=== PATIENT | female | born 1935 | race Caucasian/White ===

== ENCOUNTER → 2017-04-26 | Outpatient (CLI) | payer OTHER ==
[2015-11-09 11:46] VITALS: BP 136/55
--- NOTE | 2017-04-30 16:37 | MG ---
HISTORY: SCREENING Comparison: 09/16/2015 FINDINGS: Bilateral CC and MLO projections of the right and left breast were obtained. Heterogeneously dense f ibroglandular tissue is seen to be present. No significant architectural distortion, mass or cluster ed microcalcifications can be observed to suggest malignancy. No skin thickening or nipple retractio n is appreciated. No pathological lymphadenopathy can be identified. Benign calcifications are pres ent bilaterally IMPRESSION: NO RADIOGRAPHIC EVIDENCE OF MALIGNANCY. ACR CATEGORY 2 - benign findings FOLLOW-UP EXAM 1 YEAR. Diagnostic CAD was utilized and reviewed. * 0 (ZERO) - ASSESSMENT INCOMPLETE; ADDITIONAL IMAGING IS NEEDED. * / (ONE) - NEGATIVE. * 2/II (TWO) - BENIGN FINDINGS. * 3/III (THREE) - PROBABLY BENIGN FINDING; SHORT INTERVAL FOLLOW-UP SUGGESTED. * 4/IV (FOUR) - SUSPICIOUS ABNORMALITY; BIOPSY SHOULD BE CONSIDERED. * 5/V - HIGHLY SUSPICIOUS OF MALIGNANCY; BIOPSY SHOULD BE PERFORMED. A NEGATIVE X-RAY REPORT SHOULD NOT DELAY BIOPSY IF A DOMINANT OR CLINICALLY SUSPICIOUS MASS IS PRESENT; 4 TO 8 PERCENT OF CANCERS ARE NOT IDENTIFIED BY X-RAY. A NEGA TIVE REPORT MAY REINFORCE THE CLINICAL IMPRESSION. ADENOSIS AND DENSE BREASTS MAY OBSCURE AN UNDERLY ING NEOPLASM. Reported By:
== END ==
LOC: RAD 09:03
PROVIDERS: ATTEND Internal Medicine
DX: Z12.31 Encounter for screening mammogram for malignant neoplasm of breast (principal)
CPT/HCPCS: 77067

== ENCOUNTER → 2017-10-04 | Outpatient (CLI) | payer OTHER ==
[2015-11-09 11:46] VITALS: BP 136/55
--- NOTE | 2017-10-05 09:28 | CT ---
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 The roll hauler view of the knee shows postoperative change of right total knee arthroplasty. The component s appear intact on the roll hauler images. Prominent artifact is seen at the level of the knee joint. There is no focal soft tissue swelling or mass identified. There is a small to moderate size suprapatellar knee joint effusion seen. No discrete Arias's cyst is evident. Impression: 1. Postoperative changes of right total knee arthroplasty with the components appearing intact. 2. No focal soft tissue mass or swelling is evident. 3. Small to moderate size right knee joint effusion. Reported By:
--- NOTE | 2017-10-05 13:18 | CT ---
History: Hip pain Study: CT right hip Findings: Initial AP and lateral scanograms demonstrate pedicle screws with posterior connecting rods bilaterally at the L4-5 level. Thin-section helical CT imaging through the right hip is then perform ed. A back cage is in place within the L4-5 interspace. There is rather severe osteopenia of the bony structures. There are advanced degenerative changes of the right hip with [id number] and subchondr al sclerosis and cyst formation on both sides of the joint. No fracture is identified. The uterus is absent. Impression: Advanced osteoarthrosis of the right hip. Orthopedic hardware and anterior interbody fusion at the L4-5 level. Reported By:
== END | disposition home or self-care (01) | DRG 556 ==
LOC: RAD 11:19
PROVIDERS: ATTEND Nurse Practitioner Family
DX: M25.551 Pain in right hip (principal); M25.651 Stiffness of right hip, not elsewhere classified; M16.11 Unilateral primary osteoarthritis, right hip; M47.816 Spondylosis without myelopathy or radiculopathy, lumbar region; M47.896 Other spondylosis, lumbar region; M25.561 Pain in right knee
CPT/HCPCS: 73700

== ENCOUNTER → 2017-11-20 | Outpatient (CLI) | payer OTHER ==
[2015-11-09 11:46] VITALS: BP 136/55
[2017-11-20 10:10] LABS: BILIRUBIN,URINE NEGATIVE (NEGATIVE); BLOOD/HEMOGLOBIN,URINE NEGATIVE (NEGATIVE); GLUCOSE, URINE NEGATIVE (NEGATIVE); KETONES,URINE NEGATIVE (NEGATIVE); LEUKOCYTE ESTERASE ,URINE 2+ (NEGATIVE); NITRITES,URINE NEGATIVE (NEGATIVE); PROTEIN,URINE 1+ (NEGATIVE); UROBILINOGEN,URINE NORMAL (NORMAL)
[2017-11-20 10:11] LABS: BASOPHILS % (AUTO) 0.8 % (0.2-1.0); EOSINOPHILS # (AUTO) 0.1 x10^3/uL (0.0-0.2); EOSINOPHILS % (AUTO) 1.5 % (0.9-2.9); HEMATOCRIT 37.9 % (36.0-47.0); LYMPHOCYTES # (AUTO) 0.9 X10^3/uL (1.3-2.9); LYMPHOCYTES % (AUTO) 23.6 % (21.0-51.0); MEAN CORPUSCULAR HEMOGLOBIN 31.5 pg (27.0-34.0); MEAN CORPUSCULAR HGB CONC 34.4 g/dL (33.0-35.0); MEAN CORPUSCULAR VOLUME 91.7 fL (80.0-100.0); MEAN PLATELET VOLUME 8.4 fL (7.4-11.0); MONOCYTES # (AUTO) 0.4 x10^3/uL (0.3-0.8); MONOCYTES % (AUTO) 10.4 % (0.0-13.0); NEUTROPHILS # (AUTO) 2.5 x10^3/uL (2.2-4.8); NEUTROPHILS % (AUTO) 63.7 % (42.0-75.0); PLATELET COUNT 194 X10^3/uL (150.0-450.0); RED BLOOD COUNT 4.14 X10^6/uL (3.5-5.4); RED CELL DISTRIBUTION WIDTH 13.2 % (11.6-16.5)
[2017-11-20 10:16] LABS: BLOOD UREA NITROGEN 23 mg/dL (7-18); CALCIUM 8.7 mg/dL (8.5-10.1); CARBON DIOXIDE 29.9 mmol/L (21-32); CHLORIDE 98 mmol/L (98-107); CREATININE 0.92 mg/dL (0.55-1.02); SODIUM 136 mmol/L (136-145); eGFR BLACK RACES > 60 (>60); eGFR NON BLACK RACES > 60 (>60)
--- NOTE | 2017-11-20 10:16 | RAD ---
HISTORY: Preop. Study: PA lateral chest. Comparison: None. Findings: The trachea is midline. The cardiac silhouette is unremarkable. Chronic emphysematous changes. Multi lead left chest cardiac pacemaker. No obvious focal consolidation, pleural effusion, or pneumothorax . The bony thorax is unremarkable. IMPRESSION: No acute cardiopulmonary disease. Reported By:
[2017-11-20 10:51] LABS: APPEARANCE,URINE CLEAR (CLEAR); COLOR,URINE YELLOW (YELLOW)
[2017-11-20 10:52] LABS: AMORPHOUS SEDIMENT,UR 1+ /HPF (NEGATIVE); BACTERIA,URINE NEGATIVE /HPF (NEGATIVE); MUCUS,URINE FEW /HPF (NEGATIVE); RBC,URINE 0-2 /HPF (NONE SEEN); SQUAMOUS EPITHELIAL CELL,UR RARE /HPF (NEGATIVE)
[2017-11-20 11:36] LABS: IRON 92 ug/dL (50-175); TOTAL IRON BINDING CAPACITY 321 ug/dL (250-450); TRANSFERRIN 249 mg/dL (202-364)
== END ==
LOC: LAB 09:23
PROVIDERS: ATTEND Orthopaedic Surgery
DX: Z01.818 Encounter for other preprocedural examination (principal); Z01.810 Encounter for preprocedural cardiovascular examination; Z01.811 Encounter for preprocedural respiratory examination; Z11.8 Encounter for screening for other infectious and parasitic diseases; Z79.899 Other long term (current) drug therapy; B95.62 Methicillin resistant Staphylococcus aureus infection as the cause of diseases classified elsewhere; B95.7 Other staphylococcus as the cause of diseases classified elsewhere; R79.1 Abnormal coagulation profile; R79.89 Other specified abnormal findings of blood chemistry; M16.11 Unilateral primary osteoarthritis, right hip
CPT/HCPCS: 36415; 71046; 80048; 81001; 82607; 82728; 83540; 83550; 84466; 85025; 85610; 87640; 87641; 93005; 93010

== ENCOUNTER → 2017-11-26 | Outpatient (CLI) | payer OTHER ==
[2015-11-09 11:46] VITALS: BP 136/55
[2017-11-26 12:54] LABS: APPEARANCE,URINE CLOUDY (CLEAR); BILIRUBIN,URINE NEGATIVE (NEGATIVE); BLOOD/HEMOGLOBIN,URINE 1+ (NEGATIVE); COLOR,URINE YELLOW (YELLOW); GLUCOSE, URINE NEGATIVE (NEGATIVE); KETONES,URINE NEGATIVE (NEGATIVE); NITRITES,URINE NEGATIVE (NEGATIVE); PROTEIN,URINE NEGATIVE (NEGATIVE); UROBILINOGEN,URINE NORMAL (NORMAL)
[2017-11-26 12:55] LABS: LEUKOCYTE ESTERASE ,URINE 1+ (NEGATIVE)
[2017-11-26 12:56] LABS: BACTERIA,URINE TRACE /HPF (NEGATIVE); MUCUS,URINE FEW /HPF (NEGATIVE); RBC,URINE 0-2 /HPF (NONE SEEN); SQUAMOUS EPITHELIAL CELL,UR FEW /HPF (NEGATIVE)
== END ==
LOC: LAB 11:57
PROVIDERS: ATTEND Orthopaedic Surgery
DX: Z01.818 Encounter for other preprocedural examination (principal); M16.11 Unilateral primary osteoarthritis, right hip; Z79.899 Other long term (current) drug therapy
CPT/HCPCS: 81001; 87086

== ENCOUNTER → 2017-12-04 | Outpatient (CLI) | payer OTHER ==
[2015-11-09 11:46] VITALS: BP 136/55
== END ==
LOC: LAB 09:30
PROVIDERS: ATTEND Orthopaedic Surgery
DX: Z11.8 Encounter for screening for other infectious and parasitic diseases (principal); M16.11 Unilateral primary osteoarthritis, right hip
CPT/HCPCS: 87640; 87641

== ENCOUNTER 2018-09-09 19:35 | Observation (INO) ==
[2018-09-09 19:57] VITALS: BMI 19.7
--- NOTE | 2018-09-09 20:05 | RAD ---
History: Chest pain Technique: AP chest Comparison: 11/20/2017 Findings: There is a dual lead pacemaker device present. There is a diffuse prominence of the interstitium, without focal airspace opacities. There is mild enlargement of the cardiac silhouette. Impression: 1. Chronic appearing interstitial changes without focal airspace opacities. 2. Mild enlargement of the cardiac silhouette. Reported By:
[2018-09-09 20:07] LABS: BASOPHILS % (AUTO) 0.7 % (0.2-1.0); EOSINOPHILS # (AUTO) 0.3 x10^3/uL (0.0-0.2); HEMATOCRIT 39.8 % (36.0-47.0); HEMOGLOBIN 13.5 g/dL (12.0-16.0); LYMPHOCYTES # (AUTO) 1.5 X10^3/uL (1.3-2.9); LYMPHOCYTES % (AUTO) 32.8 % (21.0-51.0); MEAN CORPUSCULAR HEMOGLOBIN 31.5 pg (27.0-34.0); MEAN CORPUSCULAR HGB CONC 33.9 g/dL (33.0-35.0); MEAN CORPUSCULAR VOLUME 92.8 fL (80.0-100.0); MONOCYTES # (AUTO) 0.5 x10^3/uL (0.3-0.8); MONOCYTES % (AUTO) 11.5 % (0.0-13.0); NEUTROPHILS # (AUTO) 2.2 x10^3/uL (2.2-4.8); PLATELET COUNT 174 X10^3/uL (150.0-450.0); RED BLOOD COUNT 4.29 X10^6/uL (3.5-5.4); RED CELL DISTRIBUTION WIDTH 13.4 % (11.6-16.5); WHITE BLOOD COUNT 4.5 X10^3/uL (3.6-10.0)
[2018-09-09 20:19] LABS: BLOOD UREA NITROGEN 23 mg/dL (7-18); CALCIUM 9.4 mg/dL (8.5-10.1); CARBON DIOXIDE 30.7 mmol/L (21-32); CHLORIDE 101 mmol/L (98-107); CREATININE 1.15 mg/dL (0.55-1.02); SODIUM 138 mmol/L (136-145); TROPONIN I < 0.02 ng/mL (0-1.5); eGFR NON BLACK RACES 48 (>60)
--- NOTE | 2018-09-09 20:34 | DR.CP ---
HPI Time Seen Time Seen by Provider: 09/09/18 20:34 PCP Primary Care Physician: NARCISA HPI Comment HPI Comment: PATIENT SAID SHE CAN FEEL HER HEART POUNDING. ASSEMBLY LEADER INCREASE HER MEDICATION WHICH HELP A LITTLE. SUBSTERNAL CHEST TIGHTNESS ALSO NOTED AND BP ELEVATED TODAY. NO FEVER OR URI SYMPTOMS. Complaint Chief Complaint Doctor Comments: CHEST PAIN AND IRREGULAR HEART RATE TIMES 4 DAYS. Chief Complaint:: "CHEST TIGHTNESS FOR THE LAST FEW DAY, AND MY HEART BEAT FEE LS IRREGULAR AND LIKE IT IS POUNDING. MY BLOOD PRESSURE WAS 150/80 AT HOME AND THAT IS HIGH FOR ME. I JUST SEEN MY ASSEMBLY LEADER 2 WEEKS AGO, THEY ADJUSTED MY MEDICATION. I HAVE AN APPT IN THE NEXT COUPLE DAYS WITH THE ASSEMBLY LEADER, I THINK I AM FINE BUT THE GIRLS WANTED ME TO COME ON AND GET CHECKED OUT. " Reviewed Nurses Notes Review: Yes Source History Provided: Patient and Family Member Mode of Arrival Mode of Arrival: Wheelchair Timing Onset of Chief Complaint: 09/06/18 Came on: Suddenly Pain: Present Now Duration Duration: Intermittent Duration: Days Location Location of Chest Pain: Chest (SUBSTERNAL PAIN.) Chest Pain Radiation Location: None Context Onset: At rest and With light exertion Cardiac Risk Factors: HTN PE Risk Factors: None History of: None Prehospital Care: None Quality Quality: Pleuritic (TIGHTNESS.) Severity Severity: Moderate Modifying Factors Worsens: Nothing Impoves: Nothing Associated Signs and Symptoms Associated Signs and Symptoms: None PMH PMH Past Medical History: Yes Past Medical History: Hypertension Past Medical History Comment: PACEMAKER IRREGULAR HEART BEAT Past Surgical History: Yes Surgical History: Joint Replacement, Ortho Surgery and Other Past Surgical History Comment: ABLASION FEMALE SURGERY HIP REPLACEMENT BACK SURGERY KNEE REPLACEMENT Family History History of Family Medical Conditions: Yes Family Medical History: Cancer and Hypertension Social History Does patient currently use any type of tobacco product: No Have you used tobacco products in the last 12 months: No Type of Tobacco Use: None Does any household member use tobacco: No Alcohol Use: None Do you use any recreational Drugs:: No Lives With: Spouse Lives Where: Home infectious screening In the last 2 months have you had wt loss of >10#?: NO Have you had fever, night sweats or hemotysis?: No Have you traveled outside the country in the last 6 months?: No Isolation: Standard ROS Review of Systems Constitutional: Weakness and Fatigue Eyes: No Symptoms Reported ENTM: No Symptoms Reported Respiratoy: Short of Breath (ON EXERTION) Cardiovascular: Chest Pain Gastrointestinal/Abdominal: No Symptoms Reported Genitourinary: No Symptoms Reported Neurological: No Symptoms Reported Musculoskeletal: No Symptoms Reported Integumentary: No Symptoms Reported Hematologic/Lymphatic: No Symptoms Reported Endocrine: No Symptoms Reported Psychiatric: No Symptoms Reported All Other Systems: Reviewed and Negative PE Vitals Vitals: Temperature 98.0 F Pulse Rate [Apical] 64 Pulse Rate 80 Respiratory Rate 18 Blood Pressure [Right Arm] 130/57 Blood Pressure 163/72 O2 Sat by Pulse Oximetry 97 General Limitations: No Limitations General Appearance: Alert and In No Apparent Distress Head Head Exam: Normal Inspection Eyes Eye exam: Normal Appearance ENT ENT Exam: Normal Exam Chest Chest Inspection: Normal Inspection Respiratory Respiratory Exam: Normal Lung Sounds Bilat Respiratory Exam: Bilateral: Rhonchi and Lower: Rhonchi Cardiovascular Cardiovascular Exam: Regular Rate and Normal Rhythm Pulse: Normal Edema: Normal Abdominal Exam Abdominal Exam: Normal Inspection, Normal Bowel Sounds and Soft Extremities Extremities Exam: Normal Inspection Back Back Exam: Normal Inspection Neurologic Neurological Exam: Alert, Oriented X3 and CN II-XII Intact; negative Motor Sensory Deficit Psychiatric Psychiatric Exam: Normal Affect and Normal Mood Skin Skin Exam: Warm, Dry, Intact and Normal Color MDM Additional Information Additional Information Obtained From: Family Differential Diagnosis Differential Diagnosis: Angina, Aortic Dissection, CHF, Gastritis, Myocardial Infarction, Pericarditis, Pneumonia and Pulmonary Embolus COURSE Treatment Treatment: SEE ORDERS. Consultation Consultation Comments: DISCUSS PATIENT WITH DR. LYON, HE WILL ADMIT PATIENT. Education/Counseling Education/Counseling: Patient and Family Educated On: Diagnosis ROR Labs Reviewed Laboratory Results Reviewed?: Yes Result Diagrams: 09/11/18 05:18 09/11/18 05:18 Laboratory: WBC 3.2 X10^3/uL (3.6-10.0) L 09/11/18 05:18 RBC 3.77 X10^6/uL (3.5-5.4) 09/11/18 05:18 Hgb 11.9 g/dL (12.0-16.0) L 09/11/18 05:18 Hct 35.0 % (36.0-47.0) L 09/11/18 05:18 MCV 93.0 fL (80.0-100.0) 09/11/18 05:18 MCH 31.6 pg (27.0-34.0) 09/11/18 05:18 MCHC 33.9 g/dL (33.0-35.0) 09/11/18 05:18 RDW 13.4 % (11.6-16.5) 09/11/18 05:18 Plt Count 127 X10^3/uL (150.0-450.0) L 09/11/18 05:18 MPV 9.2 fL (7.4-11.0) 09/11/18 05:18 Neut % (Auto) 46.2 % (42.0-75.0) 09/11/18 05:18 Lymph % (Auto) 33.4 % (21.0-51.0) 09/11/18 05:18 Graves % (Auto) 12.9 % (0.0-13.0) 09/11/18 05:18 Eos % (Auto) 6.4 % (0.9-2.9) H 09/11/18 05:18 Baso % (Auto) 1.1 % (0.2-1.0) H 09/11/18 05:18 Neut # (Auto) 1.5 x10^3/uL (2.2-4.8) L 09/11/18 05:18 Lymph # (Auto) 1.1 X10^3/uL (1.3-2.9) L 09/11/18 05:18 Graves # (Auto) 0.4 x10^3/uL (0.3-0.8) 09/11/18 05:18 Eos # (Auto) 0.2 x10^3/uL (0.0-0.2) 09/11/18 05:18 Baso # (Auto) 0.0 X10^3/uL (0.0-0.1) 09/11/18 05:18 Absolute Nucleated RBC 0.0 /100WBC 09/11/18 05:18 INR Target Range - 09/11/18 05:18 INR 3.16 (0.8-1.3) H 09/11/18 05:18 APTT 50.2 SECONDS (22.9-36.5) H 09/09/18 19:56 PTT Comment - 09/09/18 19:56 Sodium 139 mmol/L (136-145) 09/11/18 05:18 Corrected Sodium TNP 09/11/18 05:18 Potassium 3.9 mmol/L (3.5-5.1) 09/11/18 05:18 Chloride 104 mmol/L (98-107) 09/11/18 05:18 Carbon Dioxide 28.6 mmol/L (21-32) 09/11/18 05:18 BUN 17 mg/dL (7-18) 09/11/18 05:18 Creatinine 0.97 mg/dL (0.55-1.02) 09/11/18 05:18 Est GFR (MDRD) Af Amer > 60 (>60) 09/11/18 05:18 Est GFR (MDRD) Non-Af 59 (>60) 09/11/18 05:18 Glucose 94 mg/dL (65-99) 09/11/18 05:18 Calcium 8.4 mg/dL (8.5-10.1) L 09/11/18 05:18 Corrected Calcium 9.1 mg/dL (8.5-10.1) 09/11/18 05:18 Magnesium 1.7 mg/dL (1.7-2.9) 09/10/18 05:20 Total Bilirubin 0.20 mg/dL (0.2-1.0) 09/11/18 05:18 AST 17 Units/L (15-37) 09/11/18 05:18 ALT 22 Units/L (12-78) 09/11/18 05:18 Alkaline Phosphatase 45 Units/L (46-116) L 09/11/18 05:18 Creatine Kinase 115 Units/L (26-192) 09/10/18 05:20 CK-MB (CK-2) 3.2 ng/mL (0-4.0) 09/10/18 05:20 CK/CKMB % Calc 2.8 % (<4) 09/10/18 05:20 Troponin I 0.02 ng/mL (0-1.5) 09/10/18 05:20 Total Protein 5.7 g/dL (6.4-8.2) L 09/11/18 05:18 Albumin 3.1 g/dL (3.4-5.0) L 09/11/18 05:18 Globulin 2.6 g/dL (2.5-4.5) 09/11/18 05:18 Albumin/Globulin Ratio 1.2 Ratio (1.1-2.1) 09/11/18 05:18 Triglycerides 53 mg/dL (0-150) 09/10/18 05:20 Cholesterol 134 mg/dL (0-200) 09/10/18 05:20 LDL Cholesterol, Calc 77 mg/dL (0-100) 09/10/18 05:20 HDL Cholesterol 46 mg/dL (40-60) 09/10/18 05:20 Cholesterol/HDL Ratio 2.9 (0.0-5.0) 09/10/18 05:20 XRAY XRAY Interpreted by: Radiologist XRAY Findings: REPORT ON RECORD NOTED AND DISCUSS WITH PATIENT AND FAMILY. EKG [place]: Normal Rhythm: NSR and PVCs Instructions Instructions: Personal Hygiene Premature Ventricular Contraction Chest Wall Pain, [id number] Cardiac-Specific Troponin I and T Test Hand Washing, Vrvf-he-[id number] Nonspecific Chest Pain, Luet-hs-Enwi Hypertension, Wfqv-jq-Qyoh Preventing Hypertension Infection Control in the Home Forms: Patient Portal
[2018-09-09 20:42] LABS: ALANINE AMINOTRANSFERASE 27 Units/L (12-78); ALKALINE PHOSPHATASE 58 Units/L (46-116); ASPARTATE AMINO TRANSFERASE 21 Units/L (15-37); CKMB % 2.9 % (<4); CREATINE KINASE 172 Units/L (26-192); TOTAL PROTEIN 7.1 g/dL (6.4-8.2)
[2018-09-09 21:44] LABS: CREATINE KINASE MB 4.9 ng/mL (0-4.0)
[2018-09-09] MEDS ORDERED: PATIENT'S HOME MEDICATION (Hydrocodone-Acetaminophen [Norco] 1 TAB) PO PRN (22:55)
[2018-09-09] MEDS: NS 1000 ML 1,000 ML IV SCH (23:08)
[2018-09-09] MEDS: ZESTRIL TAB 5 MG PO SCH ×2 (23:30→23:35)
[2018-09-10 06:12] LABS: BASOPHILS % (AUTO) 0.7 % (0.2-1.0); EOSINOPHILS # (AUTO) 0.2 x10^3/uL (0.0-0.2); EOSINOPHILS % (AUTO) 5.9 % (0.9-2.9); HEMATOCRIT 35.5 % (36.0-47.0); HEMOGLOBIN 12.1 g/dL (12.0-16.0); LYMPHOCYTES # (AUTO) 1.1 X10^3/uL (1.3-2.9); LYMPHOCYTES % (AUTO) 33.8 % (21.0-51.0); MEAN CORPUSCULAR HEMOGLOBIN 31.5 pg (27.0-34.0); MEAN CORPUSCULAR HGB CONC 34.1 g/dL (33.0-35.0); MEAN CORPUSCULAR VOLUME 92.5 fL (80.0-100.0); MEAN PLATELET VOLUME 9.1 fL (7.4-11.0); MONOCYTES # (AUTO) 0.5 x10^3/uL (0.3-0.8); MONOCYTES % (AUTO) 13.6 % (0.0-13.0); NEUTROPHILS # (AUTO) 1.5 x10^3/uL (2.2-4.8); PLATELET COUNT 125 X10^3/uL (150.0-450.0); RED BLOOD COUNT 3.84 X10^6/uL (3.5-5.4); RED CELL DISTRIBUTION WIDTH 13.3 % (11.6-16.5); WHITE BLOOD COUNT 3.3 X10^3/uL (3.6-10.0)
[2018-09-10 06:35] LABS: BLOOD UREA NITROGEN 18 mg/dL (7-18); CALCIUM 8.8 mg/dL (8.5-10.1); CARBON DIOXIDE 29.5 mmol/L (21-32); CHLORIDE 103 mmol/L (98-107); CREATININE 0.98 mg/dL (0.55-1.02); SODIUM 139 mmol/L (136-145); eGFR NON BLACK RACES 58 (>60)
[2018-09-10 07:15] LABS: MAGNESIUM 1.7 mg/dL (1.7-2.9)
[2018-09-10] MEDS ORDERED: SOTALOL HCL 80 MG PO SCH (09:00)
[2018-09-10] MEDS ORDERED: PATIENT'S HOME MEDICATION (Cholecalciferol (Vitamin D3) [Vitamin D3] 5,000 UNIT) PO SCH (09:00)
[2018-09-10] MEDS: MOBIC TAB 15 MG PO SCH ×2 (09:11→09:22)
[2018-09-10] MEDS: BETAPACE AF PO SCH ×2 (09:12→09:22)
[2018-09-10] MEDS: LOPRESSOR TAB 50 MG PO SCH ×3 (09:12→21:17)
[2018-09-10] MEDS: ZESTRIL TAB 5 MG PO SCH ×2 (09:15→09:22)
[2018-09-10 10:32] LABS: CKMB % 2.8 % (<4); CREATINE KINASE MB 3.2 ng/mL (0-4.0); TROPONIN I 0.02 ng/mL (0-1.5)
[2018-09-10 12:40] LABS: ALANINE AMINOTRANSFERASE 24 Units/L (12-78); ALBUMIN 3.2 g/dL (3.4-5.0); ALKALINE PHOSPHATASE 46 Units/L (46-116); ASPARTATE AMINO TRANSFERASE 21 Units/L (15-37); CHOL/HDL RATIO 2.9 (0.0-5.0); CHOLESTEROL 134 mg/dL (0-200); COR CA(FOR HYPOALB) 9.4 mg/dL (8.5-10.1); HDL CHOLESTEROL 46 mg/dL (40-60); TOTAL PROTEIN 5.9 g/dL (6.4-8.2); TRIGLYCERIDES 53 mg/dL (0-150)
--- NOTE | 2018-09-10 12:48 | DR.H&P ---
H&P - History & Physical for Day of: H&P Date: 09/09/18 - Chief Complaint Chief Complaint: CHEST TIGHTNESS, PALPATATIONS - History of Present Illness History of Present Illness: IS A 83 YEAR OLD PATIENT OF OURS WHO PRESENTED TO THE ER WITH COMPLAINTS OF CHEST TIGHTNESS AND PALPATATIONS FOR THE PAST 3 DAYS. SHE REPORTS FEELING LIKE HER HEART WAS BEATING IRREGULAR AND POUNDING. SHE ALSO REPORTS INCREASED BLOOD PRESSURE AT HOME. PATIENT HAS A PACEMAKER AND IS CURRENTLY UNDER THE CARE OF AT [facility]. SHE HAS AN APPOINTMENT SCHEDULED WITH HIM FOR SUNDAY. ON ARRIVAL, VITALS WERE 97.0-80-16-100%-163/72. LABS WERE OBTAINED. ABNORMAL LAB VALUES INCLUDE THE FOLLOWIN.99, BUN 23, CREATININE 1.15, GLUCOSE 100, CK-MB 4.9. CHEST XRAY OBTAINED AND REVEALED: Chronic appearing interstitial changes without focal airs pace opacities. Mild enlargement of the cardiac silhouette. EKG REVEALED: ATRIAL SENSED PVCs WITH HR 80. SHE WAS ADMITTED FOR CHEST PAIN RULE OUT ACUTE OH. WE PLANNED TO OBTAIN SERIAL CARDIAC ENZYMES AND EKGS. OTHERWISE, WE WILL FOLLOW UP WITH AM LABS AND CONTINUE TO MONITOR. - Past Medical History Past Medical History: Hypertension - Past Surgical History Surgical History: Hysterectomy, Ortho Surgery - Family History Family Medical History: Hypertension - Social History Does patient currently use any type of tobacco product: No Have you used tobacco products in the last 12 months: No Type of Tobacco Use: None Does any household member use tobacco: No Alcohol Use: None Drug Use: None - Medications Home Medications: codeine Allergy (Verified 09/09/18 19:57) Penicillins Allergy (Verified 09/09/18 19:57) CONTINUE taking the following medications cholecalciferol (vitamin D3) [Vitamin D3] 5,000 unit PO BID 09/09/18 [History] lovastatin 20 mg PO HS 09/09/18 [History] meloxicam 15 mg PO DAILY 09/09/18 [History] - Review of Systems Constitutional: Weakness Eyes: No Symptoms Reported ENT: No Symptoms Reported Respiratory: Shortness of Breath Cardiovascular: Chest Pain, See HPI Gastrointestinal: No Symptoms Reported Genitourinary: No Symptoms Reported Musculoskeletal: No Symptoms Reported Skin: No Symptoms Reported Neurological: Weakness - Physical Exam Vital Signs: Temperature 97.6 F Pulse Rate [Apical] 65 Pulse Rate 80 Respiratory Rate 18 Blood Pressure [Right Arm] 124/57 Blood Pressure 163/72 O2 Sat by Pulse Oximetry 98 Oriented: Normal Eyes: Normal Ear: Normal Nose: Normal Throat: Normal Respiratory: Diminished Throughout Cardiovascular: Irregular : Normal Auscultation: Bowel Sounds: Normal Palpation: Normal Tenderness: Normal Skin: Normal Musculoskeletal: Normal Psychiatric: Normal Mood Description: Calm Affect: Normal Speech Pattern: Clear - Assessment/Plan (1) Chest pain Qualifiers: Chest pain type: unspecified Qualified Code(s): R07.9 - Chest pain, unspecified Status: Acute Plan: OBTAIN SERIAL CARDIAC ENZYMES & EKG, TELEMETRY, SUPPLEMENTAL OXYGEN, CONTINUE TO MONITOR (2) PVCs (premature ventricular contractions) Status: Acute Plan: OBTAIN SERIAL CARDIAC ENZYMES & EKG, TELEMETRY, SUPPLEMENTAL OXYGEN, CONTINUE TO MONITOR (3) Hypertension Qualifiers: Hypertension type: essential hypertension Qualified Code(s): I10 - Essential (primary) hypertension Status: Chronic - Allergies Allergies/Adverse Reactions: Allergies Allergy/AdvReac Type Severity Reaction Status Date / Time codeine Allergy Verified 09/09/18 19:57 Penicillins Allergy Verified 09/09/18 19:57
[2018-09-10] MEDS: NS 1000 ML 1,000 ML IV SCH ×2 (15:06→17:11)
[2018-09-10] MEDS ORDERED: LOVASTATIN 20 MG PO SCH (21:00)
[2018-09-10] MEDS ORDERED: COUMADIN TAB 5 MG PO SCH (21:00)
[2018-09-10] MEDS ORDERED: PATIENT'S HOME MEDICATION PO SCH ×4 (21:00)
[2018-09-11 06:04] LABS: BASOPHILS % (AUTO) 1.1 % (0.2-1.0); EOSINOPHILS # (AUTO) 0.2 x10^3/uL (0.0-0.2); EOSINOPHILS % (AUTO) 6.4 % (0.9-2.9); HEMOGLOBIN 11.9 g/dL (12.0-16.0); LYMPHOCYTES # (AUTO) 1.1 X10^3/uL (1.3-2.9); LYMPHOCYTES % (AUTO) 33.4 % (21.0-51.0); MEAN CORPUSCULAR HEMOGLOBIN 31.6 pg (27.0-34.0); MEAN CORPUSCULAR HGB CONC 33.9 g/dL (33.0-35.0); MEAN PLATELET VOLUME 9.2 fL (7.4-11.0); MONOCYTES # (AUTO) 0.4 x10^3/uL (0.3-0.8); MONOCYTES % (AUTO) 12.9 % (0.0-13.0); NEUTROPHILS # (AUTO) 1.5 x10^3/uL (2.2-4.8); NEUTROPHILS % (AUTO) 46.2 % (42.0-75.0); PLATELET COUNT 127 X10^3/uL (150.0-450.0); RED BLOOD COUNT 3.77 X10^6/uL (3.5-5.4); RED CELL DISTRIBUTION WIDTH 13.4 % (11.6-16.5); WHITE BLOOD COUNT 3.2 X10^3/uL (3.6-10.0)
[2018-09-11 06:20] LABS: ALANINE AMINOTRANSFERASE 22 Units/L (12-78); ALBUMIN 3.1 g/dL (3.4-5.0); ALKALINE PHOSPHATASE 45 Units/L (46-116); ASPARTATE AMINO TRANSFERASE 17 Units/L (15-37); BLOOD UREA NITROGEN 17 mg/dL (7-18); CALCIUM 8.4 mg/dL (8.5-10.1); CARBON DIOXIDE 28.6 mmol/L (21-32); CHLORIDE 104 mmol/L (98-107); COR CA(FOR HYPOALB) 9.1 mg/dL (8.5-10.1); CREATININE 0.97 mg/dL (0.55-1.02); SODIUM 139 mmol/L (136-145); TOTAL PROTEIN 5.7 g/dL (6.4-8.2); eGFR NON BLACK RACES 59 (>60)
[2018-09-11] MEDS ORDERED: ZESTRIL TAB 5 MG PO SCH (09:00)
[2018-09-11] MEDS ORDERED: BETAPACE AF PO SCH (09:00)
[2018-09-11] MEDS ORDERED: MOBIC TAB 15 MG PO SCH (09:00)
[2018-09-11] MEDS ORDERED: BUTT CREAM (COMPOUND) ONE (09:04)
[2018-09-11] MEDS: LOPRESSOR TAB 50 MG PO SCH (09:46)
[2018-09-11 10:48] VITALS: BP 130/57
[2018-09-11] MEDS ORDERED: PATIENT'S HOME MEDICATION PO SCH (21:00)
== END 2018-09-11 11:30 | disposition home or self-care (01) ==
LOC: MED/SURG 19:39 → ER 19:39 → MED/SURG 22:48
PROVIDERS: ADMIT Obstetrics & Gynecology Obstetrics; ATTEND Internal Medicine
DX: Z79.899 Other long term (current) drug therapy; Z95.0 Presence of cardiac pacemaker; R79.1 Abnormal coagulation profile; R94.31 Abnormal electrocardiogram [ECG] [EKG]; Z79.01 Long term (current) use of anticoagulants; R07.89 Other chest pain; I10 Essential (primary) hypertension; I49.3 Ventricular premature depolarization
CPT/HCPCS: 36415; 71010; 71045; 80053; 80061; 82550; 82553; 83735; 84484; 85025; 85610; 85730; 93005; 94760; 96365; 99282; 99284; A4222; G0378; J7030

== ENCOUNTER 2024-02-14 12:37 | Inpatient (IN) ==
[2024-02-14 13:53] LABS: BASOPHILS % (AUTO) 0 % (0.2-1.0); HEMATOCRIT 35.4 % (36.0-47.0); HEMOGLOBIN 11.7 g/dL (12.0-16.0); LYMPHOCYTES # (AUTO) 0.5 X10^3/uL (1.3-2.9); LYMPHOCYTES % (AUTO) 8.8 % (21.0-51.0); MEAN CORPUSCULAR HEMOGLOBIN 32.6 pg (27.0-34.0); MEAN CORPUSCULAR VOLUME 98.9 fL (80.0-100.0); MEAN PLATELET VOLUME 8.4 fL (7.4-11.0); MONOCYTES # (AUTO) 0.7 x10^3/uL (0.3-0.8); MONOCYTES % (AUTO) 11.9 % (0.0-13.0); NEUTROPHILS # (AUTO) 4.4 x10^3/uL (2.2-4.8); NEUTROPHILS % (AUTO) 79.3 % (42.0-75.0); PLATELET COUNT 183 X10^3/uL (150.0-450.0); RED BLOOD COUNT 3.58 X10^6/uL (3.5-5.4); RED CELL DISTRIBUTION WIDTH 17.4 % (11.6-16.5); WHITE BLOOD COUNT 5.6 X10^3/uL (3.6-10.0)
[2024-02-14 13:56] LABS: BILIRUBIN,URINE NEGATIVE (NEGATIVE); BLOOD/HEMOGLOBIN,URINE NEGATIVE (NEGATIVE); GLUCOSE, URINE NEGATIVE (NEGATIVE); KETONES,URINE NEGATIVE (NEGATIVE); LEUKOCYTE ESTERASE ,URINE NEGATIVE (NEGATIVE); NITRITES,URINE NEGATIVE (NEGATIVE); PH,URINE 6.5 (5.0 - 8.0); PROTEIN,URINE 2+ (NEGATIVE); UROBILINOGEN,URINE 1+ (NORMAL)
[2024-02-14 14:03] LABS: APPEARANCE,URINE SLIGHTLY HAZY (CLEAR); BACTERIA,URINE TRACE /HPF (NEGATIVE); COLOR,URINE YELLOW (YELLOW); RBC,URINE 0-2 /HPF (0-3); SQUAMOUS EPITHELIAL CELL,UR MANY /HPF (NEGATIVE)
[2024-02-14 14:08] LABS: ALBUMIN 3.3 g/dL (3.4-5.0); CARBON DIOXIDE 28.3 mmol/L (21-32); COR CA(FOR HYPOALB) 8.6 mg/dL (8.5-10.1); CREATININE 1.2 mg/dL (0.55-1.02); POTASSIUM 4.5 mmol/L (3.5-5.1); TOTAL PROTEIN 6.6 g/dL (6.4-8.2)
[2024-02-14 18:42] LABS: INR 3.54 (0.8-1.3)
[2024-02-14 18:46] LABS: ALANINE AMINOTRANSFERASE 47 Units/L (12-78); ALBUMIN 3.3 g/dL (3.4-5.0); ALKALINE PHOSPHATASE 77 Units/L (46-116); ASPARTATE AMINO TRANSFERASE 36 Units/L (15-37); BLOOD UREA NITROGEN 24 mg/dL (7-18); CALCIUM 7.6 mg/dL (8.5-10.1); CARBON DIOXIDE 27.1 mmol/L (21-32); CHLORIDE 86 mmol/L (98-107); COR CA(FOR HYPOALB) 8.2 mg/dL (8.5-10.1); COR NA(FOR HYPERGLY) 121 mmol/L (136-145); CREATININE 1.04 mg/dL (0.55-1.02); GLUCOSE 113 mg/dL (65-99); POTASSIUM 4.3 mmol/L (3.5-5.1); TOTAL PROTEIN 6.7 g/dL (6.4-8.2); eGFR NON BLACK RACES 53 (>60)
[2024-02-14 18:49] LABS: SODIUM 121 mmol/L (136-145)
[2024-02-14] MEDS ORDERED: PULMICORT NEB TX 0.5 MG NEB ONE (19:01)
[2024-02-14] MEDS ORDERED: DUONEB 0.5 MG/3 MG (3 mL) NEB ONE (19:01)
[2024-02-14] MEDS: NS 1,000 ML IV 1,000 ML IV SCH (19:53)
[2024-02-14] MEDS: DUONEB 0.5 MG/3 MG (3 mL) NEB SCH (20:19)
[2024-02-14] MEDS: PULMICORT NEB TX 0.5 MG NEB SCH (20:19)
[2024-02-14] MEDS: LOPRESSOR TAB 50 MG PO SCH (21:02)
[2024-02-15 05:30] LABS: BASOPHILS % (AUTO) 0.1 % (0.2-1.0); HEMATOCRIT 32.1 % (36.0-47.0); HEMOGLOBIN 10.7 g/dL (12.0-16.0); LYMPHOCYTES # (AUTO) 0.2 X10^3/uL (1.3-2.9); LYMPHOCYTES % (AUTO) 4.8 % (21.0-51.0); MEAN CORPUSCULAR HEMOGLOBIN 32.7 pg (27.0-34.0); MEAN CORPUSCULAR HGB CONC 33.3 g/dL (33.0-35.0); MEAN CORPUSCULAR VOLUME 98.4 fL (80.0-100.0); MONOCYTES # (AUTO) 0.4 x10^3/uL (0.3-0.8); MONOCYTES % (AUTO) 12.1 % (0.0-13.0); PLATELET COUNT 132 X10^3/uL (150.0-450.0); RED BLOOD COUNT 3.26 X10^6/uL (3.5-5.4); WHITE BLOOD COUNT 3.6 X10^3/uL (3.6-10.0)
[2024-02-15 05:51] LABS: ALANINE AMINOTRANSFERASE 37 Units/L (12-78); ALBUMIN 2.9 g/dL (3.4-5.0); ALKALINE PHOSPHATASE 64 Units/L (46-116); ASPARTATE AMINO TRANSFERASE 24 Units/L (15-37); BLOOD UREA NITROGEN 19 mg/dL (7-18); CALCIUM 7.4 mg/dL (8.5-10.1); CHLORIDE 92 mmol/L (98-107); COR CA(FOR HYPOALB) 8.3 mg/dL (8.5-10.1); COR NA(FOR HYPERGLY) 128 mmol/L (136-145); CREATININE 0.93 mg/dL (0.55-1.02); GLUCOSE 111 mg/dL (65-99); POTASSIUM 4.1 mmol/L (3.5-5.1); SODIUM 128 mmol/L (136-145); TOTAL PROTEIN 5.8 g/dL (6.4-8.2); eGFR NON BLACK RACES > 60 (>60)
[2024-02-15 05:53] LABS: INR 2.87 (0.8-1.3)
--- NOTE | 2024-02-15 07:03 | RAD ---
EXAM:CHEST, 1 VIEWHISTORY:COVID;COMPARISON:November 2ndTECHNIQUE:Chest x-ray single viewFINDINGS:Mild cardiomegaly is observed with accentuation of the central pulmonary vasculature. A dual lead pacemaker is in place. There is blunting of the bilateral costophrenic sulci right more so than left, indicating small effusions. Haziness within the right lung base may correspond to atelectasis or pneumonia in the appropriate setting. Mild interstitial prominence of the bilateral lungs. Pulmonary hyperinflation is noted. No radiographic evidence of pneumothorax or free air below the diaphragm. Moderate scoliotic curvatureIMPRESSION:Cardiomegaly with central vascular congestion and interstitial edema.Bibasilar pleural effusions, right larger than left. Haziness in the right lung base may correspond to atelectasis or pneumoniaRadiographic features of superimposed COPDTHIS IS AN ELECTRONICALLY VERIFIED FINAL REPORT02/15/2024 7:00 AM - Electronically signed by Neftaly Brown MD
[2024-02-15] MEDS ORDERED: MILK OF MAGNESIA ONE (07:55)
[2024-02-15] MEDS: MILK OF MAGNESIA PO PRN (08:54)
[2024-02-15] MEDS: ZESTRIL TAB 5 MG PO SCH (08:54)
[2024-02-15] MEDS: PREVACID PO SCH (08:55)
[2024-02-15] MEDS: SOLU-Medrol 40 MG VIAL IVP SCH (09:28)
[2024-02-15] MEDS: ROCEPHIN VIAL 1 GRAM 1 G in NS 100 ML IV 100 ML IV SCH (09:28)
[2024-02-15] MEDS: TESSALON PERLES PO SCH (09:28)
--- NOTE | 2024-02-15 09:48 | DR.H&P ---
H&P History & Physical for Day of: H&P Date: 02/15/24 Chief Complaint Chief Complaint: COVID + Generalized weakness Hyponatremia History of Present Illness History of Present Illness: Patient is a 88-year-old female with a past medical history of hypertension, atrial fibrillation, Pacemaker, being directly admitted from Dr. Montano's clinic for COVID positive, hyponatremia, dehydration, and generalized weakness. She reports that symptoms started at the beginning of the week on Sunday when she found out she was COVID-positive. She has reported a decrease in appetite and p.o. intake. She reports cough but no shortness of breath. Earlier this month on January 27 she had a left hip replacement and has been recovering from that. Labs/imaging: WBC 3.6, hemoglobin 10.7, platelets 132, sodium 790051, potassium 4.1, creatinine 1.200.93, glucose 111, INR 2.87, BNP 477, UA negative, urine culture pending, AIT pending, chest x-ray was obtained that revealed COPD, cardiomegaly, bibasilar pleural effusions. Patient was started on IV fluids normal saline at 125 mL/h. Her sodium has improved and due to chest x-ray result results will decrease rate to 75 mL/h. Will also order antibiotics IV Rocephin, and IV steroids Solu-Medrol 40 mg daily. Scheduled bronchodilators. Ordered physical therapy. Incentive spirometer. Restart home medications. Her INR has come down we will restart Coumadin for tomorrow. Order Magic mouthwash, Tessalon Perles, Robitussin, and Ensure. Encouraged patient to eat as much of her meals as she can. Will also consult cardiologyDr. Cardona for elevated BNP and congestive heart failure. Pt will need dressing change on left hip on Sunday. Otherwise continue with current treatment plan. Continue closely monitor and follow-up labs/imaging. Time spent for clinical assessment, reviewing labs/imaging, physical exam, decision making and documentation greater than 45 mins. Past Medical History Past Medical History: Hypertension Past Surgical History Surgical History: [employer] INS[employer]OR Surgery, Hysterectomy, Joint Replacement and Other Family History Family Medical History: Cancer and Hypertension Social History Does patient currently use any type of tobacco product: Yes Type of Tobacco Use: None Alcohol Use: None Drug Use: None Medications Home Medications: Home Medications Medication Instructions Recorded Confirmed Type lisinopril 5 mg tablet 5 mg PO BID 08/31/23 02/14/24 History celecoxib 200 mg capsule 200 mg PO DAILY 02/01/24 02/14/24 History enoxaparin 40 mg/0.4 mL 40 mg subcut BID 02/01/24 02/14/24 History subcutaneous syringe lansoprazole 30 mg capsule,delayed 30 mg PO QDAY 02/01/24 02/14/24 History release lovastatin 20 mg tablet 20 mg PO QPM 02/01/24 02/14/24 History metoprolol tartrate 100 mg tablet 100 mg PO BID 02/01/24 02/14/24 History warfarin 5 mg tablet 5 mg PO DAILY 02/01/24 02/14/24 History potassium chloride 10 mEq 10 meq PO QDAY HYPOKALEMIA 02/14/24 02/14/24 History tablet,extended release Allergies Allergies Allergy/AdvReac Type Severity Reaction Status Date / Time codeine Allergy Verified 02/01/24 18:30 doxycycline Allergy Verified 02/01/24 18:30 Penicillins Allergy Verified 02/01/24 18:30 Labs 02/15/24 04:45 02/15/24 04:45 Labs: 02/14/24 12:00 Urine,Clean Catch Urine Culture - Preliminary Laboratory WBC 3.6 X10^3/uL (3.6-10.0) 02/15/24 04:45 RBC 3.26 X10^6/uL (3.5-5.4) L 02/15/24 04:45 Hgb 10.7 g/dL (12.0-16.0) L 02/15/24 04:45 Hct 32.1 % (36.0-47.0) L 02/15/24 04:45 MCV 98.4 fL (80.0-100.0) 02/15/24 04:45 MCH 32.7 pg (27.0-34.0) 02/15/24 04:45 MCHC 33.3 g/dL (33.0-35.0) 02/15/24 04:45 RDW 17.0 % (11.6-16.5) H 02/15/24 04:45 Plt Count 132 X10^3/uL (150.0-450.0) L 02/15/24 04:45 MPV 8.0 fL (7.4-11.0) 02/15/24 04:45 Neut % (Auto) 83.0 % (42.0-75.0) H 02/15/24 04:45 Lymph % (Auto) 4.8 % (21.0-51.0) L 02/15/24 04:45 [place] % (Auto) 12.1 % (0.0-13.0) 02/15/24 04:45 Eos % (Auto) 0.0 % (0.9-2.9) L 02/15/24 04:45 Baso % (Auto) 0.1 % (0.2-1.0) L 02/15/24 04:45 Neut # (Auto) 3.0 x10^3/uL (2.2-4.8) 02/15/24 04:45 Lymph # (Auto) 0.2 X10^3/uL (1.3-2.9) L 02/15/24 04:45 [place] # (Auto) 0.4 x10^3/uL (0.3-0.8) 02/15/24 04:45 Eos # (Auto) 0.0 x10^3/uL (0.0-0.2) 02/15/24 04:45 Baso # (Auto) 0.0 X10^3/uL (0.0-0.1) 02/15/24 04:45 Absolute Nucleated RBC 0.2 /100WBC 02/15/24 04:45 PT 29.0 SECONDS (11.8-14.3) 02/15/24 04:45 INR Target Range - 02/15/24 04:45 INR 2.87 (0.8-1.3) H 02/15/24 04:45 Sodium 128 mmol/L (136-145) L 02/15/24 04:45 Corrected Sodium 128 mmol/L (136-145) L 02/15/24 04:45 Potassium 4.1 mmol/L (3.5-5.1) 02/15/24 04:45 Chloride 92 mmol/L (98-107) L 02/15/24 04:45 Carbon Dioxide 26.0 mmol/L (21-32) 02/15/24 04:45 BUN 19 mg/dL (7-18) H 02/15/24 04:45 Creatinine 0.93 mg/dL (0.55-1.02) 02/15/24 04:45 Est GFR (MDRD) Af Amer > 60 (>60) 02/15/24 04:45 Est GFR (MDRD) Non-Af > 60 (>60) 02/15/24 04:45 Glucose 111 mg/dL (65-99) H 02/15/24 04:45 Calcium 7.4 mg/dL (8.5-10.1) L 02/15/24 04:45 Corrected Calcium 8.3 mg/dL (8.5-10.1) L 02/15/24 04:45 Total Bilirubin 0.40 mg/dL (0.2-1.0) 02/15/24 04:45 AST 24 Units/L (15-37) 02/15/24 04:45 ALT 37 Units/L (12-78) 02/15/24 04:45 Alkaline Phosphatase 64 Units/L (46-116) 02/15/24 04:45 B-Natriuretic Peptide 477 pg/mL (0-79) H 02/15/24 04:45 Total Protein 5.8 g/dL (6.4-8.2) L 02/15/24 04:45 Albumin 2.9 g/dL (3.4-5.0) L 02/15/24 04:45 Globulin 2.9 g/dL (2.5-4.5) 02/15/24 04:45 Albumin/Globulin Ratio 1.0 Ratio (1.1-2.1) L 02/15/24 04:45 Specimen Type Clean catch urine 02/14/24 12:00 Urine Color Yellow (YELLOW) 02/14/24 12:00 Urine Appearance Slightly hazy (CLEAR) 02/14/24 12:00 Urine pH 6.5 (5.0 - 8.0) 02/14/24 12:00 Ur Specific [place] 1.010 (1.000-1.030) 02/14/24 12:00 Urine Protein 2+ (NEGATIVE) 02/14/24 12:00 Urine Glucose (UA) Negative (NEGATIVE) 02/14/24 12:00 Urine Ketones Negative (NEGATIVE) 02/14/24 12:00 Urine Blood Negative (NEGATIVE) 02/14/24 12:00 Urine Nitrite Negative (NEGATIVE) 02/14/24 12:00 Urine Bilirubin Negative (NEGATIVE) 02/14/24 12:00 Urine Urobilinogen 1+ (NORMAL) 02/14/24 12:00 Ur Leukocyte Esterase Negative (NEGATIVE) 02/14/24 12:00 Urine RBC 0-2 /HPF (0-3) 02/14/24 12:00 Urine WBC 3-5 /HPF (0-5) 02/14/24 12:00 Ur Squamous Epith Cells Many /HPF (NEGATIVE) 02/14/24 12:00 Urine Bacteria Trace /HPF (NEGATIVE) 02/14/24 12:00 Ur Culture Indicated? No/not indicated 02/14/24 12:00 SARS-CoV-2 (PCR) Positive (NEGATIVE) A 02/14/24 17:25 Influenza Type A (PCR) Negative (NEGATIVE) 02/14/24 17:25 Influenza Type B (PCR) Negative (NEGATIVE) 02/14/24 17:25 RSV (PCR) Negative (NEGATIVE) 02/14/24 17:25 Review of Systems Constitutional: Weakness Eyes: No Symptoms Reported ENT: No Symptoms Reported Respiratory: Cough Cardiovascular: No Symptoms Reported Gastrointestinal: No Symptoms Reported Genitourinary: No Symptoms Reported Musculoskeletal: No Symptoms Reported Skin: No Symptoms Reported Neurological: No Symptoms Reported Physical Exam Vital Signs: Vital Signs Temperature 98.3 F Pulse Rate 60 Pulse Rate 60 Pulse Rate 60 Pulse Rate 60 Pulse Rate 61 Pulse Rate 60 Pulse Rate 60 Respiratory Rate 31 Respiratory Rate 26 Respiratory Rate 22 Respiratory Rate 17 Respiratory Rate 20 Respiratory Rate 37 Respiratory Rate 29 Blood Pressure 161/75 Blood Pressure 188/82 Blood Pressure 169/79 Blood Pressure 161/78 Blood Pressure 163/70 Blood Pressure 155/70 O2 Sat by Pulse Oximetry 100 O2 Sat by Pulse Oximetry 100 O2 Sat by Pulse Oximetry 100 O2 Sat by Pulse Oximetry 100 O2 Sat by Pulse Oximetry 100 O2 Sat by Pulse Oximetry 96 O2 Sat by Pulse Oximetry 100 Oriented: Normal Eyes: Normal Ear: Normal Nose: Normal Throat: Normal Respiratory: Clear Throughout Cardiovascular: Normal : Normal Auscultation: Bowel Sounds: Normal Palpation: Normal Tenderness: Normal Skin: Decreased Turgur Musculoskeletal: Normal Psychiatric: Normal Mood Description: Calm and Appropriate Affect: Normal Speech Pattern: Clear and Appropriate Assessment/Plan (1) Hyponatremia: Status: Acute Plan: Continue IVF NS (2) Pneumonia due to COVID-19 virus: Status: Acute Plan: IV Rocephin, IV Solumedrol Was taking paxlovid at home (3) Pacemaker: Status: Chronic (4) Elevated brain natriuretic peptide (BNP) level: Status: Acute Plan: Consult cardiology-Dr Cardona (5) Dehydration: Status: Acute (6) Atrial fibrillation: Status: Acute Plan: Continue metoprolol Resume coumadin tomorrow (7) Elevated INR: Status: Acute Plan: INR in range Will resume coumadin tomorrow Review H&P Reviewed: Yes Patient was examined?: Yes
--- NOTE | 2024-02-15 10:03 | EKG ---
Test Reason : chf Blood Pressure : */* mmHG Vent. Rate : 60 BPM Atrial Rate : 51 BPM P-R Int : * ms QRS Dur : 144 ms QT Int : 430 ms P-R-T Axes : * -54 112 degrees QTc Int : 430 ms Ventricular-paced rhythm underlying rhythm: afib Abnormal ECG When compared with ECG of 21-NOV-2022 09:17, premature ventricular complexes are no longer present Vent. rate has decreased BY 4 BPM Confirmed by Juan Pablo Cardona MD ([id number]) on 02/15/2024 10:45:40 AM Referred By: Confirmed By: Juan Pablo Cardona MD
[2024-02-15] MEDS: MAGIC MOUTHWASH (Orig. Formula) MT PRN (11:01)
--- NOTE | 2024-02-15 13:39 | DR.CONSULT ---
CONSULT Consultation for Day of: Date: 02/15/24 Chief Complaint Chief Complaint: sob/elevated bnp Allergies Allergies Allergy/AdvReac Type Severity Reaction Status Date / Time codeine Allergy Verified 02/01/24 18:30 doxycycline Allergy Verified 02/01/24 18:30 Penicillins Allergy Verified 02/01/24 18:30 History of Present Illness History of Present Illness: 88 yo female- cafib/pacer/htn- sees dr wellington agarwal- states no cad- on coumadin for years- presented sob/feeling bad and tested positive for covid-labs had bnp 826- just had hip replacemnt few weeks ago Past Medical History Past Medical History: Hypertension Past Surgical History Surgical History: LIVE[employer]OCK F[employer]ER Surgery, Hysterectomy, Joint Replacement and Other Family History Family Medical History: Cancer and Hypertension Social History Does patient currently use any type of tobacco product: Yes Type of Tobacco Use: None Alcohol Use: None Drug Use: None Medications Home Medications: codeine Allergy (Verified 02/01/24 18:30) doxycycline Allergy (Verified 02/01/24 18:30) Penicillins Allergy (Verified 02/01/24 18:30) CONTINUE taking the following medications potassium chloride 10 mEq tablet,extended release 10 meq PO QDAY HYPOKALEMIA 02/14/24 [History] Physical Exam Vital Signs: Vital Signs Temperature 97.6 F Temperature 98.8 F Pulse Rate 60 Pulse Rate 60 Pulse Rate 60 Pulse Rate 60 Pulse Rate 60 Respiratory Rate 13 Respiratory Rate 18 Respiratory Rate 31 Respiratory Rate 26 Blood Pressure 149/70 Blood Pressure 156/75 Blood Pressure 161/75 Blood Pressure 188/82 O2 Sat by Pulse Oximetry 100 O2 Sat by Pulse Oximetry 97 O2 Sat by Pulse Oximetry 100 O2 Sat by Pulse Oximetry 100 O2 Sat by Pulse Oximetry 100 alert ox3 nad 100% sat on no oxygen bp 140-170 p 60 heeent: elevated JVD to jaw lungs: decreased bs bases few crackles cor : 2/6 roni, 3/6 hsm apex ext: no edema wearing support stockings labs to note: wbc 3.6, hct 32, INR 2.87 na 128 cr 0.93, bnp down to 477( got lasix yesterday) alb 2.9 cxr: cm wvasc congestion/?pna/B effusions r>L ekg: afib/v paced echo: ef 50% apical wma prob from pacer, aortic sclerosis/mild ai- mod mr/large LA- rv 58 ( states echo at primary cardio 6 months ago- will try to get to compare!) Plan (1) Pneumonia due to COVID-19 virus: Status: Acute (2) Pacemaker: Status: Chronic (3) Elevated brain natriuretic peptide (BNP) level: Status: Acute Narrative Support Text: mild chf/ covid can elevate too- needs better bp control/minimize fluid- lasix if symptomatic (4) Atrial fibrillation: Status: Acute Narrative Support Text: chronic afib on rate control/coumadin (5) Elevated INR: Status: Acute (6) Hypertension: Status: Chronic Qualifiers: Hypertension type: essential hypertension Qualified Code(s): I10 - Essential (primary) hypertension Narrative Support Text: needs better bp control with MR/elevated PA (7) Mitral regurgitation: Status: Acute
[2024-02-15] MEDS: ROBITUSSIN DM PO SCH (13:51)
[2024-02-15] MEDS: TYLENOL 325 MG TAB PO PRN (17:02)
[2024-02-15] MEDS: TYLENOL 325 MG TAB PO ONE (18:33)
[2024-02-15] MEDS: COLACE CAP 100 MG PO SCH (21:19)
[2024-02-15] MEDS: ZESTRIL TAB 10 MG PO SCH (21:20)
[2024-02-16 05:34] LABS: ALANINE AMINOTRANSFERASE 38 Units/L (12-78); ALBUMIN 3.1 g/dL (3.4-5.0); ALKALINE PHOSPHATASE 62 Units/L (46-116); ASPARTATE AMINO TRANSFERASE 20 Units/L (15-37); BLOOD UREA NITROGEN 18 mg/dL (7-18); CALCIUM 7.7 mg/dL (8.5-10.1); CARBON DIOXIDE 25.7 mmol/L (21-32); CHLORIDE 94 mmol/L (98-107); COR CA(FOR HYPOALB) 8.4 mg/dL (8.5-10.1); COR NA(FOR HYPERGLY) 131 mmol/L (136-145); CREATININE 0.82 mg/dL (0.55-1.02); GLUCOSE 128 mg/dL (65-99); POTASSIUM 4.1 mmol/L (3.5-5.1); SODIUM 130 mmol/L (136-145); TOTAL PROTEIN 5.9 g/dL (6.4-8.2); eGFR NON BLACK RACES > 60 (>60)
[2024-02-16 05:40] LABS: INR 2.19 (0.8-1.3)
[2024-02-16 05:46] LABS: BASOPHILS % (AUTO) 0.1 % (0.2-1.0); HEMOGLOBIN 10.5 g/dL (12.0-16.0); LYMPHOCYTES # (AUTO) 0.1 X10^3/uL (1.3-2.9); LYMPHOCYTES % (AUTO) 3.1 % (21.0-51.0); MEAN CORPUSCULAR HEMOGLOBIN 32.4 pg (27.0-34.0); MEAN CORPUSCULAR HGB CONC 32.8 g/dL (33.0-35.0); MEAN CORPUSCULAR VOLUME 98.9 fL (80.0-100.0); MONOCYTES # (AUTO) 0.4 x10^3/uL (0.3-0.8); MONOCYTES % (AUTO) 8.1 % (0.0-13.0); NEUTROPHILS # (AUTO) 4.1 x10^3/uL (2.2-4.8); NEUTROPHILS % (AUTO) 88.7 % (42.0-75.0); PLATELET COUNT 135 X10^3/uL (150.0-450.0); RED BLOOD COUNT 3.24 X10^6/uL (3.5-5.4); RED CELL DISTRIBUTION WIDTH 17.4 % (11.6-16.5); WHITE BLOOD COUNT 4.7 X10^3/uL (3.6-10.0)
[2024-02-16] MEDS ORDERED: COUMADIN TAB 5 MG (JANTOVEN) PO SCH (09:00)
--- NOTE | 2024-02-16 14:22 | DR.PROGNOT ---
HOSPITAL PROGRESS NOTE Progress Note for Day of: Progress Note Date: 02/16/24 Chief Complaint Chief Complaint: Cough. History of Present Illness History of Present Illness: Patient seen with nursing and family at bedside. She is here for COVID-pneumonia. Also positive for a UTI today with Klebsiella. She is already on Rocephin for which it is sensitive to. Does report a little bit of sore throat that Magic mouthwash has helped in the last 24 hours. Tessalon Perles have helped her cough as well. Sodium was down to 121 but is up to 130 today. She does feel better overall, but still very weak. PE: Thin, elderly, well-developed, well-nourished female in no acute distress. She is reclined in bed. Hearing intact conversation. Extremity was grossly normal. Lungs are diminished but clear today. Heart regular rate and rhythm with a 2 out of 6 murmur. Belly is soft, nontender, with bowel sounds present. Mood and affect are appropriate. Alert and oriented x 4. Past Medical Family Social History Allergies: Allergies codeine Allergy (Verified 02/01/24 18:30) doxycycline Allergy (Verified 02/01/24 18:30) Penicillins Allergy (Verified 02/01/24 18:30) Vital Signs Vital Signs: Vital Signs Temperature 98.1 F Temperature 97.5 F Pulse Rate 60 Pulse Rate 60 Pulse Rate 62 Pulse Rate 60 Pulse Rate 74 Pulse Rate 60 Pulse Rate 60 Respiratory Rate 31 Respiratory Rate 21 Respiratory Rate 25 Respiratory Rate 29 Respiratory Rate 29 Respiratory Rate 29 Respiratory Rate 15 Blood Pressure 162/85 Blood Pressure 157/77 Blood Pressure 150/70 Blood Pressure 164/74 Blood Pressure 170/79 O2 Sat by Pulse Oximetry 100 O2 Sat by Pulse Oximetry 98 O2 Sat by Pulse Oximetry 100 O2 Sat by Pulse Oximetry 100 O2 Sat by Pulse Oximetry 99 O2 Sat by Pulse Oximetry 99 O2 Sat by Pulse Oximetry 100 Physical Exam Oriented: Normal Eyes: Normal Ear: Normal Nose: Normal Throat: Normal Cardiovascular: Normal : Normal GI:Auscultation: Normal GI:Palpation: Normal GI: Tenderness: Normal Skin: Decreased Turgur Musculoskeletal: Normal Psychiatric: Normal Mood Description: Calm and Appropriate Affect: Normal Speech Pattern: Clear and Appropriate Laboratory and Diagnostics 02/16/24 04:05 02/16/24 04:05 Labs: 02/14/24 12:00 Urine,Clean Catch Urine Culture - Final Klebsiella Pneumoniae Laboratory WBC 4.7 X10^3/uL (3.6-10.0) 02/16/24 04:05 RBC 3.24 X10^6/uL (3.5-5.4) L 02/16/24 04:05 Hgb 10.5 g/dL (12.0-16.0) L 02/16/24 04:05 Hct 32.0 % (36.0-47.0) L 02/16/24 04:05 MCV 98.9 fL (80.0-100.0) 02/16/24 04:05 MCH 32.4 pg (27.0-34.0) 02/16/24 04:05 MCHC 32.8 g/dL (33.0-35.0) L 02/16/24 04:05 RDW 17.4 % (11.6-16.5) H 02/16/24 04:05 Plt Count 135 X10^3/uL (150.0-450.0) L 02/16/24 04:05 MPV 8.0 fL (7.4-11.0) 02/16/24 04:05 Neut % (Auto) 88.7 % (42.0-75.0) H 02/16/24 04:05 Lymph % (Auto) 3.1 % (21.0-51.0) L 02/16/24 04:05 [place] % (Auto) 8.1 % (0.0-13.0) 02/16/24 04:05 Eos % (Auto) 0.0 % (0.9-2.9) L 02/16/24 04:05 Baso % (Auto) 0.1 % (0.2-1.0) L 02/16/24 04:05 Neut # (Auto) 4.1 x10^3/uL (2.2-4.8) 02/16/24 04:05 Lymph # (Auto) 0.1 X10^3/uL (1.3-2.9) L 02/16/24 04:05 [place] # (Auto) 0.4 x10^3/uL (0.3-0.8) 02/16/24 04:05 Eos # (Auto) 0.0 x10^3/uL (0.0-0.2) 02/16/24 04:05 Baso # (Auto) 0.0 X10^3/uL (0.0-0.1) 02/16/24 04:05 Absolute Nucleated RBC 0.6 /100WBC 02/16/24 04:05 PT 23.6 SECONDS (11.8-14.3) 02/16/24 04:05 INR Target Range - 02/16/24 04:05 INR 2.19 (0.8-1.3) H 02/16/24 04:05 Sodium 130 mmol/L (136-145) L 02/16/24 04:05 Corrected Sodium 131 mmol/L (136-145) L 02/16/24 04:05 Potassium 4.1 mmol/L (3.5-5.1) 02/16/24 04:05 Chloride 94 mmol/L (98-107) L 02/16/24 04:05 Carbon Dioxide 25.7 mmol/L (21-32) 02/16/24 04:05 BUN 18 mg/dL (7-18) 02/16/24 04:05 Creatinine 0.82 mg/dL (0.55-1.02) 02/16/24 04:05 Est GFR (MDRD) Af Amer > 60 (>60) 02/16/24 04:05 Est GFR (MDRD) Non-Af > 60 (>60) 02/16/24 04:05 Glucose 128 mg/dL (65-99) H 02/16/24 04:05 Calcium 7.7 mg/dL (8.5-10.1) L 02/16/24 04:05 Corrected Calcium 8.4 mg/dL (8.5-10.1) L 02/16/24 04:05 Total Bilirubin 0.30 mg/dL (0.2-1.0) 02/16/24 04:05 AST 20 Units/L (15-37) 02/16/24 04:05 ALT 38 Units/L (12-78) 02/16/24 04:05 Alkaline Phosphatase 62 Units/L (46-116) 02/16/24 04:05 B-Natriuretic Peptide 477 pg/mL (0-79) H 02/15/24 04:45 Total Protein 5.9 g/dL (6.4-8.2) L 02/16/24 04:05 Albumin 3.1 g/dL (3.4-5.0) L 02/16/24 04:05 Globulin 2.8 g/dL (2.5-4.5) 02/16/24 04:05 Albumin/Globulin Ratio 1.1 Ratio (1.1-2.1) 02/16/24 04:05 Specimen Type Clean catch urine 02/14/24 12:00 Urine Color Yellow (YELLOW) 02/14/24 12:00 Urine Appearance Slightly hazy (CLEAR) 02/14/24 12:00 Urine pH 6.5 (5.0 - 8.0) 02/14/24 12:00 Ur Specific [place] 1.010 (1.000-1.030) 02/14/24 12:00 Urine Protein 2+ (NEGATIVE) 02/14/24 12:00 Urine Glucose (UA) Negative (NEGATIVE) 02/14/24 12:00 Urine Ketones Negative (NEGATIVE) 02/14/24 12:00 Urine Blood Negative (NEGATIVE) 02/14/24 12:00 Urine Nitrite Negative (NEGATIVE) 02/14/24 12:00 Urine Bilirubin Negative (NEGATIVE) 02/14/24 12:00 Urine Urobilinogen 1+ (NORMAL) 02/14/24 12:00 Ur Leukocyte Esterase Negative (NEGATIVE) 02/14/24 12:00 Urine RBC 0-2 /HPF (0-3) 02/14/24 12:00 Urine WBC 3-5 /HPF (0-5) 02/14/24 12:00 Ur Squamous Epith Cells Many /HPF (NEGATIVE) 02/14/24 12:00 Urine Bacteria Trace /HPF (NEGATIVE) 02/14/24 12:00 Ur Culture Indicated? No/not indicated 02/14/24 12:00 SARS-CoV-2 (PCR) Positive (NEGATIVE) A 02/14/24 17:25 Influenza Type A (PCR) Negative (NEGATIVE) 02/14/24 17:25 Influenza Type B (PCR) Negative (NEGATIVE) 02/14/24 17:25 RSV (PCR) Negative (NEGATIVE) 02/14/24 17:25 Assessment and Plan 1: COVID-pneumonia. Continue current 2: Klebsiella pneumoniae UTI. Continue Rocephin. 3: Hyponatremia. Uncertain if this is a medication side effect, po stoperative/postanesthesia issues, or CKD. Continue to monitor. Avoid low-salt diet.
[2024-02-16] MEDS: COUMADIN TAB 5 MG (JANTOVEN) PO SCH (21:00)
[2024-02-17 05:41] LABS: BASOPHILS % (AUTO) 0.1 % (0.2-1.0); HEMATOCRIT 31.4 % (36.0-47.0); HEMOGLOBIN 10.5 g/dL (12.0-16.0); LYMPHOCYTES # (AUTO) 0.1 X10^3/uL (1.3-2.9); LYMPHOCYTES % (AUTO) 2.7 % (21.0-51.0); MEAN CORPUSCULAR HEMOGLOBIN 33.1 pg (27.0-34.0); MEAN CORPUSCULAR HGB CONC 33.5 g/dL (33.0-35.0); MEAN CORPUSCULAR VOLUME 98.7 fL (80.0-100.0); MONOCYTES # (AUTO) 0.5 x10^3/uL (0.3-0.8); MONOCYTES % (AUTO) 10.5 % (0.0-13.0); NEUTROPHILS # (AUTO) 4.2 x10^3/uL (2.2-4.8); NEUTROPHILS % (AUTO) 86.7 % (42.0-75.0); PLATELET COUNT 125 X10^3/uL (150.0-450.0); RED BLOOD COUNT 3.18 X10^6/uL (3.5-5.4); RED CELL DISTRIBUTION WIDTH 17.6 % (11.6-16.5); WHITE BLOOD COUNT 4.9 X10^3/uL (3.6-10.0)
[2024-02-17 06:06] LABS: INR 1.51 (0.8-1.3)
[2024-02-17 06:16] LABS: ALANINE AMINOTRANSFERASE 41 Units/L (12-78); ALKALINE PHOSPHATASE 58 Units/L (46-116); ASPARTATE AMINO TRANSFERASE 24 Units/L (15-37); BLOOD UREA NITROGEN 16 mg/dL (7-18); CALCIUM 7.5 mg/dL (8.5-10.1); CARBON DIOXIDE 26.3 mmol/L (21-32); CHLORIDE 94 mmol/L (98-107); COR CA(FOR HYPOALB) 8.3 mg/dL (8.5-10.1); COR NA(FOR HYPERGLY) 130 mmol/L (136-145); CREATININE 0.81 mg/dL (0.55-1.02); GLUCOSE 124 mg/dL (65-99); POTASSIUM 4.3 mmol/L (3.5-5.1); SODIUM 129 mmol/L (136-145); TOTAL PROTEIN 5.7 g/dL (6.4-8.2); eGFR NON BLACK RACES > 60 (>60)
--- NOTE | 2024-02-17 10:04 | RAD ---
EXAM: AP chest HISTORY: Follow-up pneumonia COMPARISON: 02/16/2024 FINDINGS: Similar cardiomegaly and pacemaker. Asymmetric pulmonary parenchymal density is again noted, right greater than left, without interval change. There is no evidence for complicating extrapulmonary air /pneumothorax. IMPRESSION: No change since 1 day prior. The findings in the lungs are consistent with bilateral pneumonia and suspect right pleural effusion. Asymmetric pulmonary edema could produce similar findings. THIS IS AN ELECTRONICALLY VERIFIED FINAL REPORT 02/17/2024 9:27 AM - Electronically signed by Austin Zaman MD
--- NOTE | 2024-02-17 14:30 | NOTE.SOAP ---
Soap Note Note for Day of Date of Exam: 02/17/24 Subjective Data Subjective Data: Patient seen with family nursing at bedside. Feels a little bit better today but still very weak. Sodium 129 this morning. Breathing stable. Has been ambulating in the hallways with assistance. Blood pressure still elevated but better than admission. Still not eaten much with meals but is adding salt. Objective Data Objective Data: Thin, elderly female no acute distress. She is reclined in bed. Hearing intact to conversation. Extract movements grossly normal. Lungs diminished but clear today. Good respiratory effort and speaking in full sentences. Bowel sounds are present with soft, nontender belly. Mood and affect are appropriate. Assessment Assessment: 1. COVID-pneumonia. Continue current. 2. Klebsiella UTI. Continue Rocephin. 3. Hypertension. Allow permissive hypertension as 1 to be careful about medication use impacting her hyponatremia. 4. Hyponatremia. Try to minimize medication effects on the kidneys. I do think she has hyponatremic hypervolemia going home. May need to add salt tabs will continue normal saline and increase salt diet for now.
[2024-02-17] MEDS ORDERED: TUSSIONEX PENNKINETIC SUSP PO PRN (21:00)
[2024-02-18 05:42] LABS: BASOPHILS % (AUTO) 0.1 % (0.2-1.0); EOSINOPHILS % (AUTO) 0.1 % (0.9-2.9); HEMATOCRIT 32.4 % (36.0-47.0); HEMOGLOBIN 10.8 g/dL (12.0-16.0); LYMPHOCYTES # (AUTO) 0.3 X10^3/uL (1.3-2.9); LYMPHOCYTES % (AUTO) 4.1 % (21.0-51.0); MEAN CORPUSCULAR HEMOGLOBIN 32.8 pg (27.0-34.0); MEAN CORPUSCULAR HGB CONC 33.4 g/dL (33.0-35.0); MEAN CORPUSCULAR VOLUME 98.3 fL (80.0-100.0); MONOCYTES # (AUTO) 0.8 x10^3/uL (0.3-0.8); MONOCYTES % (AUTO) 11.6 % (0.0-13.0); NEUTROPHILS # (AUTO) 5.8 x10^3/uL (2.2-4.8); NEUTROPHILS % (AUTO) 84.1 % (42.0-75.0); PLATELET COUNT 128 X10^3/uL (150.0-450.0); RED BLOOD COUNT 3.29 X10^6/uL (3.5-5.4); RED CELL DISTRIBUTION WIDTH 17.1 % (11.6-16.5); WHITE BLOOD COUNT 6.8 X10^3/uL (3.6-10.0)
[2024-02-18 05:50] LABS: ALANINE AMINOTRANSFERASE 45 Units/L (12-78); ALBUMIN 2.9 g/dL (3.4-5.0); ALKALINE PHOSPHATASE 54 Units/L (46-116); ASPARTATE AMINO TRANSFERASE 22 Units/L (15-37); BLOOD UREA NITROGEN 19 mg/dL (7-18); CALCIUM 7.6 mg/dL (8.5-10.1); CARBON DIOXIDE 27.9 mmol/L (21-32); CHLORIDE 95 mmol/L (98-107); COR CA(FOR HYPOALB) 8.5 mg/dL (8.5-10.1); CREATININE 0.74 mg/dL (0.55-1.02); GLUCOSE 95 mg/dL (65-99); POTASSIUM 3.9 mmol/L (3.5-5.1); SODIUM 131 mmol/L (136-145); TOTAL PROTEIN 5.6 g/dL (6.4-8.2); eGFR NON BLACK RACES > 60 (>60)
[2024-02-18 05:56] LABS: INR 1.75 (0.8-1.3)
--- NOTE | 2024-02-18 08:22 | RAD ---
EXAM:CHEST, 1 VIEWHISTORY:generalized weakness;COMPARISON:Prior study or studies were utilized for comparison during interpretation with the most relevant dated 02/14/2024TECHNIQUE:CHEST, 1 VIEWFINDINGS:Chest:Lines and tubes: Left-sided pacemaker generator with lead or leads in satisfactory position.Mediastinum: Cardiac and mediastinal shadow is within normal limits for size and contour.Pulmonary vessels: There is pulmonary vascular congestion.Lung fernandez: Hazy opacity projects over the entire right lung fieldPleura: There is blunting of the right costophrenic angle. No pneumothorax.Bones and soft tissues: No acute osseous or soft tissue abnormality. Reduction of humeral acromial interval suggests right rotator cuff pathology.IMPRESSION:1. Heart failure versus right pneumoniaTHIS IS AN ELECTRONICALLY VERIFIED FINAL REPORT02/18/2024 8:18 AM - Electronically signed by Edgardo Garcia MD
--- NOTE | 2024-02-18 08:24 | RAD ---
EXAM:CHEST, 1 VIEWHISTORY:weakness;COMPARISON:Prior study or studies were utilized for comparison during interpretation with the most relevant dated 02/16/2024TECHNIQUE:CHEST, 1 VIEWFINDINGS:Chest:Lines and tubes: Left-sided pacemaker generator with lead or leads in satisfactory position.Mediastinum: Borderline cardiomegaly.Pulmonary vessels: Right pulmonary vessels are congested, less than when compared 2 1 day priorLung fernandez: Improved right base opacities.Pleura: No effusion. No pneumothorax.Bones and soft tissues: No acute osseous or soft tissue abnormality.IMPRESSION:1. Improving right airspace disease and vascular prominence.THIS IS AN ELECTRONICALLY VERIFIED FINAL REPORT02/18/2024 8:21 AM - Electronically signed by Edgardo Garcia MD
[2024-02-18] MEDS: ZESTRIL TAB 10 MG PO SCH (09:10)
[2024-02-18] MEDS: DIFLUCAN PO ONE (09:42)
[2024-02-18] MEDS: ZITHROMAX INJ 500 MG VIAL 500 MG in NS 250 ML IV 250 ML IV SCH ×2 (09:42→10:48)
--- NOTE | 2024-02-18 09:42 | PCM.PROG ---
Progress Note Progress Note for Day of Date of Exam: 02/18/24 Subjective Subjective: Patient seen at bedside, no acute events overnight. She reports having some coughing spells this morning and feeling slightly short of breath. She is currently on room air with sats 98%. She did ambulate in the room and hallway yesterday. She states appetite is slowly getting better, drinking fluids. She is currently admitted for COVID-19 pneumonia, UTI, hyponatremia and weakness. Labs/imaging reviewed: -Hgb 10.8 Plt: 128 INR:1.75 Na:131 K:3.9 -CXR: improving right airspace disease Plan: Will add Azithromycin, continue Rocephin. Change solumedrol to 40 mg BID. Continue nebs, IS, cough medication. Replace electrolytes as per protocol. PT/OT as tolerated. Follow pending Cx. Continue home medications. Patient was suppose to f/u with Ortho in [place] today for post-op visit to remove yannick. Will have nurse contact their office and change dressing/remove yannick as needed. Monitor AM labs/imaging. Past Medical Family Social History Allergies: Allergies codeine Allergy (Verified 02/01/24 18:30) doxycycline Allergy (Verified 02/01/24 18:30) Penicillins Allergy (Verified 02/01/24 18:30) Vital Signs and I&O's Vital Signs: Vital Signs Temperature 97.9 F Temperature 98.2 F Pulse Rate 60 Pulse Rate 63 Pulse Rate 60 Pulse Rate 60 Pulse Rate 60 Pulse Rate 60 Respiratory Rate 34 Respiratory Rate 32 Respiratory Rate 16 Respiratory Rate 14 Respiratory Rate 13 Blood Pressure 179/81 Blood Pressure 169/84 Blood Pressure 165/80 O2 Sat by Pulse Oximetry 99 O2 Sat by Pulse Oximetry 98 O2 Sat by Pulse Oximetry 99 O2 Sat by Pulse Oximetry 100 O2 Sat by Pulse Oximetry 100 O2 Sat by Pulse Oximetry 100 Intake and Output: Intake & Output 02/15/24 02/16/24 02/17/24 02/18/24 23:59 23:59 23:59 23:59 Intake Total 2355 / 2355 1134 / 1134 1849 / 1849 666 / 666 Output Total 975 / 975 1200 / 1200 1150 / 1150 700 / 700 Balance 1380 / 1380 -66 / -66 699 / 699 -34 / -34 Physical Exam Oriented: Normal Eyes: Normal Ear: Normal Nose: Normal Throat: Normal Respiratory: Generalized, Wheezes and Rhonchi Cardiovascular: Normal Auscultation: Bowel Sounds: Normal Palpation: Normal Tenderness: Normal Skin: Decreased Turgur Musculoskeletal: Normal, Left and Hip (dressing intact ) Psychiatric: Normal Mood Description: Calm and Appropriate Affect: Normal Speech Pattern: Clear and Appropriate Laboratory and Diagnostics 02/18/24 04:15 02/18/24 04:15 Labs: 02/14/24 12:00 Urine,Clean Catch Urine Culture - Final Klebsiella Pneumoniae Laboratory WBC 6.8 X10^3/uL (3.6-10.0) 02/18/24 04:15 RBC 3.29 X10^6/uL (3.5-5.4) L 02/18/24 04:15 Hgb 10.8 g/dL (12.0-16.0) L 02/18/24 04:15 Hct 32.4 % (36.0-47.0) L 02/18/24 04:15 MCV 98.3 fL (80.0-100.0) 02/18/24 04:15 MCH 32.8 pg (27.0-34.0) 02/18/24 04:15 MCHC 33.4 g/dL (33.0-35.0) 02/18/24 04:15 RDW 17.1 % (11.6-16.5) H 02/18/24 04:15 Plt Count 128 X10^3/uL (150.0-450.0) L 02/18/24 04:15 MPV 8.0 fL (7.4-11.0) 02/18/24 04:15 Neut % (Auto) 84.1 % (42.0-75.0) H 02/18/24 04:15 Lymph % (Auto) 4.1 % (21.0-51.0) L 02/18/24 04:15 [place] % (Auto) 11.6 % (0.0-13.0) 02/18/24 04:15 Eos % (Auto) 0.1 % (0.9-2.9) L 02/18/24 04:15 Baso % (Auto) 0.1 % (0.2-1.0) L 02/18/24 04:15 Neut # (Auto) 5.8 x10^3/uL (2.2-4.8) H 02/18/24 04:15 Lymph # (Auto) 0.3 X10^3/uL (1.3-2.9) L 02/18/24 04:15 [place] # (Auto) 0.8 x10^3/uL (0.3-0.8) 02/18/24 04:15 Eos # (Auto) 0.0 x10^3/uL (0.0-0.2) 02/18/24 04:15 Baso # (Auto) 0.0 X10^3/uL (0.0-0.1) 02/18/24 04:15 Absolute Nucleated RBC 0.3 /100WBC 02/18/24 04:15 PT 19.9 SECONDS (11.8-14.3) 02/18/24 04:15 INR Target Range - 02/18/24 04:15 INR 1.75 (0.8-1.3) H 02/18/24 04:15 Sodium 131 mmol/L (136-145) L 02/18/24 04:15 Corrected Sodium TNP 02/18/24 04:15 Potassium 3.9 mmol/L (3.5-5.1) 02/18/24 04:15 Chloride 95 mmol/L (98-107) L 02/18/24 04:15 Carbon Dioxide 27.9 mmol/L (21-32) 02/18/24 04:15 BUN 19 mg/dL (7-18) H 02/18/24 04:15 Creatinine 0.74 mg/dL (0.55-1.02) 02/18/24 04:15 Est GFR (MDRD) Af Amer > 60 (>60) 02/18/24 04:15 Est GFR (MDRD) Non-Af > 60 (>60) 02/18/24 04:15 Glucose 95 mg/dL (65-99) 02/18/24 04:15 Calcium 7.6 mg/dL (8.5-10.1) L 02/18/24 04:15 Corrected Calcium 8.5 mg/dL (8.5-10.1) 02/18/24 04:15 Total Bilirubin 0.30 mg/dL (0.2-1.0) 02/18/24 04:15 AST 22 Units/L (15-37) 02/18/24 04:15 ALT 45 Units/L (12-78) 02/18/24 04:15 Alkaline Phosphatase 54 Units/L (46-116) 02/18/24 04:15 B-Natriuretic Peptide 477 pg/mL (0-79) H 02/15/24 04:45 Total Protein 5.6 g/dL (6.4-8.2) L 02/18/24 04:15 Albumin 2.9 g/dL (3.4-5.0) L 02/18/24 04:15 Globulin 2.7 g/dL (2.5-4.5) 02/18/24 04:15 Albumin/Globulin Ratio 1.1 Ratio (1.1-2.1) 02/18/24 04:15 Specimen Type Clean catch urine 02/14/24 12:00 Urine Color Yellow (YELLOW) 02/14/24 12:00 Urine Appearance Slightly hazy (CLEAR) 02/14/24 12:00 Urine pH 6.5 (5.0 - 8.0) 02/14/24 12:00 Ur Specific [place] 1.010 (1.000-1.030) 02/14/24 12:00 Urine Protein 2+ (NEGATIVE) 02/14/24 12:00 Urine Glucose (UA) Negative (NEGATIVE) 02/14/24 12:00 Urine Ketones Negative (NEGATIVE) 02/14/24 12:00 Urine Blood Negative (NEGATIVE) 02/14/24 12:00 Urine Nitrite Negative (NEGATIVE) 02/14/24 12:00 Urine Bilirubin Negative (NEGATIVE) 02/14/24 12:00 Urine Urobilinogen 1+ (NORMAL) 02/14/24 12:00 Ur Leukocyte Esterase Negative (NEGATIVE) 02/14/24 12:00 Urine RBC 0-2 /HPF (0-3) 02/14/24 12:00 Urine WBC 3-5 /HPF (0-5) 02/14/24 12:00 Ur Squamous Epith Cells Many /HPF (NEGATIVE) 02/14/24 12:00 Urine Bacteria Trace /HPF (NEGATIVE) 02/14/24 12:00 Ur Culture Indicated? No/not indicated 02/14/24 12:00 SARS-CoV-2 (PCR) Positive (NEGATIVE) A 02/14/24 17:25 Influenza Type A (PCR) Negative (NEGATIVE) 02/14/24 17:25 Influenza Type B (PCR) Negative (NEGATIVE) 02/14/24 17:25 RSV (PCR) Negative (NEGATIVE) 02/14/24 17:25 Plan (1) Pneumonia due to COVID-19 virus: Status: Acute (2) Generalized weakness: Status: Acute (3) CHF (congestive heart failure): Status: Acute Qualifiers: Heart failure chronicity: acute on chronic Heart failure type: diastoli c Qualified Code(s): I50.33 - Acute on chronic diastolic (congestive) heart failure (4) UTI (urinary tract infection): Status: Acute Qualifiers: Hematuria presence: without hematuria Urinary tract infection type: acute cystitis Qualified Code(s): N30.00 - Acute cystitis without hematuria (5) Pacemaker: Status: Chronic (6) Atrial fibrillation: Status: Acute Qualifiers: Atrial fibrillation type: unspecified chronic Qualified Code(s): I48.20 - Chronic atrial fibrillation, unspecified (7) Hypertension: Status: Chronic Qualifiers: Hypertension type: essential hypertension Qualified Code(s): I10 - Essential (primary) hypertension (8) Mitral regurgitation: Status: Acute Qualifiers: Cardiac valve disease etiology: etiology unspecified Qualified Code(s): I34.0 - Nonrheumatic mitral (valve) insufficiency
[2024-02-18] MEDS ORDERED: VISTARIL PO PRN (22:27)
[2024-02-18] MEDS: SOLU-Medrol 40 MG VIAL IVP SCH (23:27)
[2024-02-19 05:05] LABS: HEMOGLOBIN 11.2 g/dL (12.0-16.0); WHITE BLOOD COUNT 5.3 X10^3/uL (3.6-10.0)
[2024-02-19 05:07] LABS: INR 2.11 (0.8-1.3)
[2024-02-19 05:12] LABS: BASOPHILS % (AUTO) 0.1 % (0.2-1.0); HEMATOCRIT 33.5 % (36.0-47.0); LYMPHOCYTES # (AUTO) 0.2 X10^3/uL (1.3-2.9); MEAN CORPUSCULAR HEMOGLOBIN 32.4 pg (27.0-34.0); MEAN CORPUSCULAR HGB CONC 33.5 g/dL (33.0-35.0); MEAN CORPUSCULAR VOLUME 96.8 fL (80.0-100.0); MEAN PLATELET VOLUME 8.1 fL (7.4-11.0); MONOCYTES # (AUTO) 0.3 x10^3/uL (0.3-0.8); NEUTROPHILS # (AUTO) 4.8 x10^3/uL (2.2-4.8); NEUTROPHILS % (AUTO) 91.9 % (42.0-75.0); PLATELET COUNT 141 X10^3/uL (150.0-450.0); RED BLOOD COUNT 3.46 X10^6/uL (3.5-5.4); RED CELL DISTRIBUTION WIDTH 17.1 % (11.6-16.5)
[2024-02-19 05:16] LABS: ALANINE AMINOTRANSFERASE 99 Units/L (12-78); ALBUMIN 2.9 g/dL (3.4-5.0); ALKALINE PHOSPHATASE 72 Units/L (46-116); ASPARTATE AMINO TRANSFERASE 41 Units/L (15-37); BLOOD UREA NITROGEN 19 mg/dL (7-18); CALCIUM 7.8 mg/dL (8.5-10.1); CARBON DIOXIDE 25.7 mmol/L (21-32); CHLORIDE 95 mmol/L (98-107); COR CA(FOR HYPOALB) 8.7 mg/dL (8.5-10.1); COR NA(FOR HYPERGLY) 130 mmol/L (136-145); CREATININE 0.71 mg/dL (0.55-1.02); GLUCOSE 146 mg/dL (65-99); POTASSIUM 4.2 mmol/L (3.5-5.1); SODIUM 129 mmol/L (136-145); TOTAL PROTEIN 5.7 g/dL (6.4-8.2); eGFR NON BLACK RACES > 60 (>60)
[2024-02-19 05:54] LABS: ANISOCYTOSIS 1+; BASOPHILS % (MANUAL) 0 % (0-1); PLATELET MORPHOLOGY COMMENT NORMAL (NORMAL)
--- NOTE | 2024-02-19 09:43 | PCM.PROG ---
Progress Note Progress Note for Day of Date of Exam: 02/19/24 Subjective Subjective: Patient seen at bedside, no acute events overnight. She states she feels a little better. Her appetite is about the same, she is trying to drink more fluids. She is currently on room air. She has been getting up and ambulating. She reports cough and congestion. She is on Rocephin and Azithro mycin. She has been getting nebs and smart vest. Labs/imaging reviewed: -Hgb 11.2 Plt: 141 INR:2.11 Na:130 K:4.2 AST/ALT:41/99 BNP:790 -CXR: improving right airspace disease Plan: Follow CXR results. Will give one dose lasix 40 mg IV. Continue IV antibiotics, nebs and cough medicine. Continue solumedrol. Replace electrolytes as per protocol. PT/OT as tolerated. Follow pending Cx. Continue home medications. Patient was suppose to f/u with Ortho in [place] today for post-op visit to remove yannick. Will have nurse contact their office and change dressing/remove yannick as needed. Monitor AM labs/imaging. Past Medical Family Social History Allergies: Allergies codeine Allergy (Verified 02/01/24 18:30) doxycycline Allergy (Verified 02/01/24 18:30) Penicillins Allergy (Verified 02/01/24 18:30) Vital Signs and I&O's Vital Signs: Vital Signs Temperature 98.1 F Pulse Rate 60 Pulse Rate 60 Pulse Rate 60 Respiratory Rate 21 Respiratory Rate 24 Blood Pressure 157/78 Blood Pressure 106/60 O2 Sat by Pulse Oximetry 98 O2 Sat by Pulse Oximetry 99 O2 Sat by Pulse Oximetry 95 Intake and Output: Intake & Output 02/16/24 02/17/24 02/18/24 02/19/24 23:59 23:59 23:59 23:59 Intake Total 1134 / 1134 1849 / 1849 2138 / 2138 320 / 320 Output Total 1200 / 1200 1150 / 1150 1200 / 1200 450 / 450 Balance -66 / -66 699 / 699 938 / 938 -130 / -130 Physical Exam Oriented: Normal Eyes: Normal Ear: Normal Nose: Normal Throat: Normal Respiratory: Generalized, Diminished and [place] Cardiovascular: Normal and Edema Auscultation: Bowel Sounds: Normal Tenderness: Normal Skin: Decreased Turgur Musculoskeletal: Normal, Left and Hip (dressing intact ) Psychiatric: Normal Mood Description: Calm and Appropriate Affect: Normal Speech Pattern: Clear and Appropriate Laboratory and Diagnostics 02/19/24 04:14 02/19/24 04:14 Labs: 02/14/24 12:00 Urine,Clean Catch Urine Culture - Final Klebsiella Pneumoniae Laboratory WBC 5.3 X10^3/uL (3.6-10.0) 02/19/24 04:14 RBC 3.46 X10^6/uL (3.5-5.4) L 02/19/24 04:14 Hgb 11.2 g/dL (12.0-16.0) L 02/19/24 04:14 Hct 33.5 % (36.0-47.0) L 02/19/24 04:14 MCV 96.8 fL (80.0-100.0) 02/19/24 04:14 MCH 32.4 pg (27.0-34.0) 02/19/24 04:14 MCHC 33.5 g/dL (33.0-35.0) 02/19/24 04:14 RDW 17.1 % (11.6-16.5) H 02/19/24 04:14 Plt Count 141 X10^3/uL (150.0-450.0) L 02/19/24 04:14 Plt Count Comment Decreased (ADEQUATE) A 02/19/24 04:14 MPV 8.1 fL (7.4-11.0) 02/19/24 04:14 Neut % (Auto) 91.9 % (42.0-75.0) H 02/19/24 04:14 Lymph % (Auto) 3.0 % (21.0-51.0) L 02/19/24 04:14 [place] % (Auto) 5.0 % (0.0-13.0) 02/19/24 04:14 Eos % (Auto) 0.0 % (0.9-2.9) L 02/19/24 04:14 Baso % (Auto) 0.1 % (0.2-1.0) L 02/19/24 04:14 Neut # (Auto) 4.8 x10^3/uL (2.2-4.8) 02/19/24 04:14 Lymph # (Auto) 0.2 X10^3/uL (1.3-2.9) L 02/19/24 04:14 [place] # (Auto) 0.3 x10^3/uL (0.3-0.8) 02/19/24 04:14 Eos # (Auto) 0.0 x10^3/uL (0.0-0.2) 02/19/24 04:14 Baso # (Auto) 0.0 X10^3/uL (0.0-0.1) 02/19/24 04:14 Absolute Nucleated RBC 0.2 /100WBC 02/19/24 04:14 Total Counted 100 02/19/24 04:14 Neutrophils % (Manual) 93 % (39-76) H 02/19/24 04:14 Lymphocytes % (Manual) 4 % (13-43) L 02/19/24 04:14 Monocytes % (Manual) 3 % (4-9) L 02/19/24 04:14 Eosinophils % (Manual) 0 % (0-6) 02/19/24 04:14 Basophils % (Manual) 0 % (0-1) 02/19/24 04:14 Plt Morphology Comment Normal (NORMAL) 02/19/24 04:14 RBC Morphology Abnormal (NORMAL) A 02/19/24 04:14 Anisocytosis 1+ A 02/19/24 04:14 PT 23.0 SECONDS (11.8-14.3) 02/19/24 04:14 INR Target Range - 02/19/24 04:14 INR 2.11 (0.8-1.3) H 02/19/24 04:14 Sodium 129 mmol/L (136-145) L 02/19/24 04:14 Corrected Sodium 130 mmol/L (136-145) L 02/19/24 04:14 Potassium 4.2 mmol/L (3.5-5.1) 02/19/24 04:14 Chloride 95 mmol/L (98-107) L 02/19/24 04:14 Carbon Dioxide 25.7 mmol/L (21-32) 02/19/24 04:14 BUN 19 mg/dL (7-18) H 02/19/24 04:14 Creatinine 0.71 mg/dL (0.55-1.02) 02/19/24 04:14 Est GFR (MDRD) Af Amer > 60 (>60) 02/19/24 04:14 Est GFR (MDRD) Non-Af > 60 (>60) 02/19/24 04:14 Glucose 146 mg/dL (65-99) H 02/19/24 04:14 Calcium 7.8 mg/dL (8.5-10.1) L 02/19/24 04:14 Corrected Calcium 8.7 mg/dL (8.5-10.1) 02/19/24 04:14 Total Bilirubin 0.50 mg/dL (0.2-1.0) 02/19/24 04:14 AST 41 Units/L (15-37) H 02/19/24 04:14 ALT 99 Units/L (12-78) H 02/19/24 04:14 Alkaline Phosphatase 72 Units/L (46-116) 02/19/24 04:14 B-Natriuretic Peptide 790 pg/mL (0-79) H 02/19/24 04:14 Total Protein 5.7 g/dL (6.4-8.2) L 02/19/24 04:14 Albumin 2.9 g/dL (3.4-5.0) L 02/19/24 04:14 Globulin 2.8 g/dL (2.5-4.5) 02/19/24 04:14 Albumin/Globulin Ratio 1.0 Ratio (1.1-2.1) L 02/19/24 04:14 Specimen Type Clean catch urine 02/14/24 12:00 Urine Color Yellow (YELLOW) 02/14/24 12:00 Urine Appearance Slightly hazy (CLEAR) 02/14/24 12:00 Urine pH 6.5 (5.0 - 8.0) 02/14/24 12:00 Ur Specific [place] 1.010 (1.000-1.030) 02/14/24 12:00 Urine Protein 2+ (NEGATIVE) 02/14/24 12:00 Urine Glucose (UA) Negative (NEGATIVE) 02/14/24 12:00 Urine Ketones Negative (NEGATIVE) 02/14/24 12:00 Urine Blood Negative (NEGATIVE) 02/14/24 12:00 Urine Nitrite Negative (NEGATIVE) 02/14/24 12:00 Urine Bilirubin Negative (NEGATIVE) 02/14/24 12:00 Urine Urobilinogen 1+ (NORMAL) 02/14/24 12:00 Ur Leukocyte Esterase Negative (NEGATIVE) 02/14/24 12:00 Urine RBC 0-2 /HPF (0-3) 02/14/24 12:00 Urine WBC 3-5 /HPF (0-5) 02/14/24 12:00 Ur Squamous Epith Cells Many /HPF (NEGATIVE) 02/14/24 12:00 Urine Bacteria Trace /HPF (NEGATIVE) 02/14/24 12:00 Ur Culture Indicated? No/not indicated 02/14/24 12:00 SARS-CoV-2 (PCR) Positive (NEGATIVE) A 02/14/24 17:25 Influenza Type A (PCR) Negative (NEGATIVE) 02/14/24 17:25 Influenza Type B (PCR) Negative (NEGATIVE) 02/14/24 17:25 RSV (PCR) Negative (NEGATIVE) 02/14/24 17:25 Resp Viral Panel (PCR) See scanned report 02/14/24 20:24 Plan (1) Pneumonia due to COVID-19 virus: Status: Acute (2) Generalized weakness: Status: Acute (3) CHF (congestive heart failure): Status: Acute Qualifiers: Heart failure type: diastolic Heart failure chronicity: acute on chronic Qualified Code(s): I50.33 - Acute on chronic diastolic (congestive) heart failure (4) UTI (urinary tract infection): Status: Acute Qualifiers: Urinary tract infection type: acute cystitis Hematuria presence: without hematuria Qualified Code(s): N30.00 - Acute cystitis without hematuria (5) Pacemaker: Status: Chronic (6) Atrial fibrillation: Status: Acute Qualifiers: Atrial fibrillation type: unspecified chronic Qualified Code(s): I48.20 - Chronic atrial fibrillation, unspecified Plan: Continue metoprolol Resume coumadin tomorrow (7) Hypertension: Status: Chronic Qualifiers: Hypertension type: essential hypertension Qualified Code(s): I10 - Essential (primary) hypertension (8) Mitral regurgitation: Status: Acute Qualifiers: Cardiac valve disease etiology: etiology unspecified Qualified Code(s): I34.0 - Nonrheumatic mitral (valve) insufficiency
--- NOTE | 2024-02-19 10:09 | RAD ---
EXAM:CHEST, 1 VIEWHISTORY:GENERALIZED WEAKNESS ; CHF, CARDIAC ARRHYTHMIA, HTN, GERD SX: HYST, PACEMAKER, MARGUERITE TOTAL HIP REPLACEMENT, TOTAL RIGHT KNEE REPLACEMENT, RECTOCILECOMPARISON:Prior study or studies were utilized for comparison during interpretation with the most relevant dated 02/18/2024TECHNIQUE:CHEST, 1 VIEWFINDINGS:Chest:Lines and tubes: Left-sided pacemaker generator with lead or leads in satisfactory position.Mediastinum: Cardiomegaly.Pulmonary vessels: There is pulmonary vascular congestion.Lung fernandez: Patchy opacities are seenPleura: No effusion. No pneumothorax.Bones and soft tissues: No acute osseous or soft tissue abnormality.IMPRESSION:1. Findings suggest heart failureTHIS IS AN ELECTRONICALLY VERIFIED FINAL REPORT02/19/2024 10:05 AM - Electronically signed by Edgardo Garcia MD
[2024-02-19] MEDS: LASIX IVP ONE (11:53)
[2024-02-19] MEDS: MIRALAX POWDER (1 DOSE 17 G) PO SCH (20:09)
[2024-02-20 00:11] VITALS: PULSE 60
[2024-02-20 05:55] LABS: ALANINE AMINOTRANSFERASE 86 Units/L (12-78); ALKALINE PHOSPHATASE 66 Units/L (46-116); ASPARTATE AMINO TRANSFERASE 25 Units/L (15-37); BLOOD UREA NITROGEN 24 mg/dL (7-18); CALCIUM 7.9 mg/dL (8.5-10.1); CARBON DIOXIDE 29.3 mmol/L (21-32); CHLORIDE 93 mmol/L (98-107); COR CA(FOR HYPOALB) 8.7 mg/dL (8.5-10.1); COR NA(FOR HYPERGLY) 130 mmol/L (136-145); CREATININE 0.82 mg/dL (0.55-1.02); GLUCOSE 140 mg/dL (65-99); MAGNESIUM 2.2 mg/dL (2.0-2.9); POTASSIUM 4.1 mmol/L (3.5-5.1); SODIUM 129 mmol/L (136-145); TOTAL PROTEIN 5.9 g/dL (6.4-8.2); eGFR NON BLACK RACES > 60 (>60)
[2024-02-20 06:10] LABS: BASOPHILS % (AUTO) 0.1 % (0.2-1.0); HEMATOCRIT 33.9 % (36.0-47.0); HEMOGLOBIN 11.2 g/dL (12.0-16.0); LYMPHOCYTES # (AUTO) 0.2 X10^3/uL (1.3-2.9); LYMPHOCYTES % (AUTO) 3.9 % (21.0-51.0); MEAN CORPUSCULAR HEMOGLOBIN 32.3 pg (27.0-34.0); MEAN CORPUSCULAR HGB CONC 33.1 g/dL (33.0-35.0); MEAN CORPUSCULAR VOLUME 97.7 fL (80.0-100.0); MEAN PLATELET VOLUME 8.4 fL (7.4-11.0); MONOCYTES # (AUTO) 0.5 x10^3/uL (0.3-0.8); MONOCYTES % (AUTO) 9.3 % (0.0-13.0); NEUTROPHILS # (AUTO) 5.1 x10^3/uL (2.2-4.8); NEUTROPHILS % (AUTO) 86.7 % (42.0-75.0); PLATELET COUNT 152 X10^3/uL (150.0-450.0); RED BLOOD COUNT 3.47 X10^6/uL (3.5-5.4); RED CELL DISTRIBUTION WIDTH 16.4 % (11.6-16.5); WHITE BLOOD COUNT 5.9 X10^3/uL (3.6-10.0)
[2024-02-20 07:13] LABS: INR 3.29 (0.8-1.3)
--- NOTE | 2024-02-20 09:52 | PCM.PROG ---
Progress Note Progress Note for Day of Date of Exam: 02/20/24 Subjective Subjective: Patient seen at bedside, no acute events overnight. She is sitting up in the chair and eating breakfast, feeling better this morning. Speech therapy did recommend swallow study which patient had done this morning. She is eating better, was able to take her medicines yesterday. She has not had a BM and uses mineral oil at home. She did work with PT. Denies SOB, still has some dry cough. Labs/imaging reviewed: -Hgb 11.2 Plt: 152 INR:3.29 Na:130 K:4.1 INR: 3.29 -CXR: heart failure Plan: follow swallow study results. Will DC Azithromycin after today's dose, continue Rocephin. Hold warfarin today. Continue nebs and cough medicine. Continue solumedrol. Replace electrolytes as per protocol. Monitor Na. PT/OT as tolerated. Continue home medications. Add mineral oil. Monitor AM labs/imaging. Past Medical Family Social History Allergies: Allergies codeine Allergy (Verified 02/01/24 18:30) doxycycline Allergy (Verified 02/01/24 18:30) Penicillins Allergy (Verified 02/01/24 18:30) Vital Signs and I&O's Vital Signs: Vital Signs Temperature 98.4 F Pulse Rate 60 Pulse Rate 60 Respiratory Rate 15 Blood Pressure 167/74 O2 Sat by Pulse Oximetry 98 O2 Sat by Pulse Oximetry 99 Intake and Output: Intake & Output 02/17/24 02/18/24 02/19/24 02/20/24 23:59 23:59 23:59 23:59 Intake Total 1849 / 1849 2138 / 2138 1637 / 1637 356 / 356 Output Total 1150 / 1150 1200 / 1200 1950 / 1950 200 / 200 Balance 699 / 699 938 / 938 -313 / -313 156 / 156 Physical Exam Oriented: Normal Eyes: Normal Ear: Normal Nose: Normal Throat: Normal Respiratory: Generalized and Diminished Cardiovascular: Normal and Edema Auscultation: Bowel Sounds: Normal Palpation: Normal Tenderness: Normal Skin: Decreased Turgur Musculoskeletal: Normal, Left and Hip (dressing intact ) Psychiatric: Normal Mood Description: Calm and Appropriate Affect: Normal Speech Pattern: Clear and Appropriate Laboratory and Diagnostics 02/20/24 04:10 02/20/24 04:10 Labs: 02/14/24 12:00 Urine,Clean Catch Urine Culture - Final Klebsiella Pneumoniae Laboratory WBC 5.9 X10^3/uL (3.6-10.0) 02/20/24 04:10 RBC 3.47 X10^6/uL (3.5-5.4) L 02/20/24 04:10 Hgb 11.2 g/dL (12.0-16.0) L 02/20/24 04:10 Hct 33.9 % (36.0-47.0) L 02/20/24 04:10 MCV 97.7 fL (80.0-100.0) 02/20/24 04:10 MCH 32.3 pg (27.0-34.0) 02/20/24 04:10 MCHC 33.1 g/dL (33.0-35.0) 02/20/24 04:10 RDW 16.4 % (11.6-16.5) 02/20/24 04:10 Plt Count 152 X10^3/uL (150.0-450.0) 02/20/24 04:10 Plt Count Comment Decreased (ADEQUATE) A 02/19/24 04:14 MPV 8.4 fL (7.4-11.0) 02/20/24 04:10 Neut % (Auto) 86.7 % (42.0-75.0) H 02/20/24 04:10 Lymph % (Auto) 3.9 % (21.0-51.0) L 02/20/24 04:10 [place] % (Auto) 9.3 % (0.0-13.0) 02/20/24 04:10 Eos % (Auto) 0.0 % (0.9-2.9) L 02/20/24 04:10 Baso % (Auto) 0.1 % (0.2-1.0) L 02/20/24 04:10 Neut # (Auto) 5.1 x10^3/uL (2.2-4.8) H 02/20/24 04:10 Lymph # (Auto) 0.2 X10^3/uL (1.3-2.9) L 02/20/24 04:10 [place] # (Auto) 0.5 x10^3/uL (0.3-0.8) 02/20/24 04:10 Eos # (Auto) 0.0 x10^3/uL (0.0-0.2) 02/20/24 04:10 Baso # (Auto) 0.0 X10^3/uL (0.0-0.1) 02/20/24 04:10 Absolute Nucleated RBC 0.2 /100WBC 02/20/24 04:10 Total Counted 100 02/19/24 04:14 Neutrophils % (Manual) 93 % (39-76) H 02/19/24 04:14 Lymphocytes % (Manual) 4 % (13-43) L 02/19/24 04:14 Monocytes % (Manual) 3 % (4-9) L 02/19/24 04:14 Eosinophils % (Manual) 0 % (0-6) 02/19/24 04:14 Basophils % (Manual) 0 % (0-1) 02/19/24 04:14 Plt Morphology Comment Normal (NORMAL) 02/19/24 04:14 RBC Morphology Abnormal (NORMAL) A 02/19/24 04:14 Anisocytosis 1+ A 02/19/24 04:14 PT 32.3 SECONDS (11.8-14.3) 02/20/24 04:10 INR Target Range - 02/20/24 04:10 INR 3.29 (0.8-1.3) H 02/20/24 04:10 Sodium 129 mmol/L (136-145) L 02/20/24 04:10 Corrected Sodium 130 mmol/L (136-145) L 02/20/24 04:10 Potassium 4.1 mmol/L (3.5-5.1) 02/20/24 04:10 Chloride 93 mmol/L (98-107) L 02/20/24 04:10 Carbon Dioxide 29.3 mmol/L (21-32) 02/20/24 04:10 BUN 24 mg/dL (7-18) H 02/20/24 04:10 Creatinine 0.82 mg/dL (0.55-1.02) 02/20/24 04:10 Est GFR (MDRD) Af Amer > 60 (>60) 02/20/24 04:10 Est GFR (MDRD) Non-Af > 60 (>60) 02/20/24 04:10 Glucose 140 mg/dL (65-99) H 02/20/24 04:10 Calcium 7.9 mg/dL (8.5-10.1) L 02/20/24 04:10 Corrected Calcium 8.7 mg/dL (8.5-10.1) 02/20/24 04:10 Magnesium 2.2 mg/dL (2.0-2.9) 02/20/24 04:10 Total Bilirubin 0.50 mg/dL (0.2-1.0) 02/20/24 04:10 AST 25 Units/L (15-37) 02/20/24 04:10 ALT 86 Units/L (12-78) H 02/20/24 04:10 Alkaline Phosphatase 66 Units/L (46-116) 02/20/24 04:10 B-Natriuretic Peptide 790 pg/mL (0-79) H 02/19/24 04:14 Total Protein 5.9 g/dL (6.4-8.2) L 02/20/24 04:10 Albumin 3.0 g/dL (3.4-5.0) L 02/20/24 04:10 Globulin 2.9 g/dL (2.5-4.5) 02/20/24 04:10 Albumin/Globulin Ratio 1.0 Ratio (1.1-2.1) L 02/20/24 04:10 Specimen Type Clean catch urine 02/14/24 12:00 Urine Color Yellow (YELLOW) 02/14/24 12:00 Urine Appearance Slightly hazy (CLEAR) 02/14/24 12:00 Urine pH 6.5 (5.0 - 8.0) 02/14/24 12:00 Ur Specific [place] 1.010 (1.000-1.030) 02/14/24 12:00 Urine Protein 2+ (NEGATIVE) 02/14/24 12:00 Urine Glucose (UA) Negative (NEGATIVE) 02/14/24 12:00 Urine Ketones Negative (NEGATIVE) 02/14/24 12:00 Urine Blood Negative (NEGATIVE) 02/14/24 12:00 Urine Nitrite Negative (NEGATIVE) 02/14/24 12:00 Urine Bilirubin Negative (NEGATIVE) 02/14/24 12:00 Urine Urobilinogen 1+ (NORMAL) 02/14/24 12:00 Ur Leukocyte Esterase Negative (NEGATIVE) 02/14/24 12:00 Urine RBC 0-2 /HPF (0-3) 02/14/24 12:00 Urine WBC 3-5 /HPF (0-5) 02/14/24 12:00 Ur Squamous Epith Cells Many /HPF (NEGATIVE) 02/14/24 12:00 Urine Bacteria Trace /HPF (NEGATIVE) 02/14/24 12:00 Ur Culture Indicated? No/not indicated 02/14/24 12:00 SARS-CoV-2 (PCR) Positive (NEGATIVE) A 02/14/24 17:25 Influenza Type A (PCR) Negative (NEGATIVE) 02/14/24 17:25 Influenza Type B (PCR) Negative (NEGATIVE) 02/14/24 17:25 RSV (PCR) Negative (NEGATIVE) 02/14/24 17:25 Resp Viral Panel (PCR) See scanned report 02/14/24 20:24 Plan (1) Pneumonia due to COVID-19 virus: Status: Acute (2) Generalized weakness: Status: Acute (3) CHF (congestive heart failure): Status: Acute Qualifiers: Heart failure chronicity: acute on chronic Heart failure type: diastolic Qualified Code(s): I50.33 - Acute on chronic diastolic (congestive) heart failure (4) UTI (urinary tract infection): Status: Acute Qualifiers: Hematuria presence: without hematuria Urinary tract infection type: acute cystitis Qualified Code(s): N30.00 - Acute cystitis without hematuria (5) Pacemaker: Status: Chronic (6) Atrial fibrillation: Status: Acute Qualifiers: Atrial fibrillation type: unspecified chronic Qualified Code(s): I48.20 - Chronic atrial fibrillation, unspecified (7) Hypertension: Status: Chronic Qualifiers: Hypertension type: essential hypertension Qualified Code(s): I10 - Essential (primary) hypertension (8) Mitral regurgitation: Status: Acute Qualifiers: Cardiac valve disease etiology: etiology unspecified Qualified Code(s): I34.0 - Nonrheumatic mitral (valve) insufficiency
[2024-02-20] MEDS ORDERED: MINERAL OIL PO PRN (09:53)
[2024-02-20] MEDS ORDERED: NS 250 ML IV 25 ML IV PRN (14:18)
[2024-02-20] MEDS: MELATONIN PO SCH (20:48)
--- NOTE | 2024-02-21 00:23 | EKG ---
Test Reason : Chest pain Blood Pressure : */* mmHG Vent. Rate : 60 BPM Atrial Rate : 64 BPM P-R Int : * ms QRS Dur : 152 ms QT Int : 484 ms P-R-T Axes : * -58 104 degrees QTc Int : 484 ms Ventricular-paced rhythm Abnormal ECG When compared with ECG of 15-FEB-2024 09:26, No significant change was found Confirmed by Juan Pablo Cardona MD ([id number]) on 02/21/2024 7:02:51 AM Referred By: Confirmed By: Juan Pablo Cardona MD
[2024-02-21 00:38] LABS: HEMOGLOBIN 11.3 g/dL (12.0-16.0); MEAN CORPUSCULAR HEMOGLOBIN 31.7 pg (27.0-34.0); MEAN CORPUSCULAR HGB CONC 32.6 g/dL (33.0-35.0); WHITE BLOOD COUNT 6.4 X10^3/uL (3.6-10.0)
[2024-02-21 00:41] LABS: BASOPHILS % (AUTO) 0.8 % (0.2-1.0); HEMATOCRIT 34.8 % (36.0-47.0); LYMPHOCYTES # (AUTO) 0.2 X10^3/uL (1.3-2.9); LYMPHOCYTES % (AUTO) 2.9 % (21.0-51.0); MEAN PLATELET VOLUME 8.2 fL (7.4-11.0); MONOCYTES # (AUTO) 0.4 x10^3/uL (0.3-0.8); MONOCYTES % (AUTO) 6.4 % (0.0-13.0); NEUTROPHILS # (AUTO) 5.8 x10^3/uL (2.2-4.8); NEUTROPHILS % (AUTO) 89.9 % (42.0-75.0); PLATELET COUNT 152 X10^3/uL (150.0-450.0); RED BLOOD COUNT 3.58 X10^6/uL (3.5-5.4); RED CELL DISTRIBUTION WIDTH 17.2 % (11.6-16.5)
[2024-02-21 00:59] LABS: ALANINE AMINOTRANSFERASE 89 Units/L (12-78); ALKALINE PHOSPHATASE 63 Units/L (46-116); ASPARTATE AMINO TRANSFERASE 26 Units/L (15-37); BLOOD UREA NITROGEN 27 mg/dL (7-18); CARBON DIOXIDE 25.5 mmol/L (21-32); CHLORIDE 94 mmol/L (98-107); COR CA(FOR HYPOALB) 8.8 mg/dL (8.5-10.1); COR NA(FOR HYPERGLY) 129 mmol/L (136-145); CREATININE 0.84 mg/dL (0.55-1.02); GLUCOSE 143 mg/dL (65-99); MAGNESIUM 2.2 mg/dL (2.0-2.9); POTASSIUM 4.5 mmol/L (3.5-5.1); SODIUM 128 mmol/L (136-145); TOTAL PROTEIN 5.7 g/dL (6.4-8.2); eGFR NON BLACK RACES > 60 (>60)
[2024-02-21 01:32] LABS: INR 4.06 (0.8-1.3)
--- NOTE | 2024-02-21 05:46 | RAD ---
EXAM: CHEST, 1 VIEW HISTORY: PT C/O CHEST PAIN; CHF, CARDIAC ARRHYTHMIA, HTN, GERD SX: MARGUERITE TOTAL HIP REPLACEMENT, TOTAL RIGHT KNEE REPLACEMENT, PACEMAKER, HYST, RECTOCELE COMPARISON: 02/19/2024 FINDINGS: The trachea is midline. The cardiac silhouette is mildly enlarged. Permanent pacing device.. Patch y right basilar opacities unchanged. No pneumothorax.. The bony thorax is unremarkable. IMPRESSION: Stable portable chest THIS IS AN ELECTRONICALLY VERIFIED FINAL REPORT 02/21/2024 5:43 AM - Electronically signed by Syed Will MD
[2024-02-21 05:51] VITALS: TEMP 98; O2SAT 100
--- NOTE | 2024-02-21 05:57 | EKG ---
Test Reason : Chest Pain Blood Pressure : */* mmHG Vent. Rate : 60 BPM Atrial Rate : 64 BPM P-R Int : * ms QRS Dur : 130 ms QT Int : 444 ms P-R-T Axes : * -60 110 degrees QTc Int : 444 ms Ventricular-paced rhythm Abnormal ECG When compared with ECG of 21-FEB-2024 00:01, (Unconfirmed) No significant change was found Confirmed by Juan Pablo Cardona MD ([id number]) on 02/21/2024 7:02:44 AM Referred By: Confirmed By: Juan Pablo Cardona MD
[2024-02-21 06:12] LABS: BASOPHILS % (AUTO) 0.2 % (0.2-1.0); HEMATOCRIT 32.6 % (36.0-47.0); HEMOGLOBIN 10.7 g/dL (12.0-16.0); LYMPHOCYTES # (AUTO) 0.2 X10^3/uL (1.3-2.9); LYMPHOCYTES % (AUTO) 3.8 % (21.0-51.0); MEAN CORPUSCULAR HEMOGLOBIN 31.9 pg (27.0-34.0); MEAN CORPUSCULAR VOLUME 96.5 fL (80.0-100.0); MEAN PLATELET VOLUME 8.2 fL (7.4-11.0); MONOCYTES # (AUTO) 0.5 x10^3/uL (0.3-0.8); MONOCYTES % (AUTO) 9.9 % (0.0-13.0); NEUTROPHILS # (AUTO) 4.2 x10^3/uL (2.2-4.8); NEUTROPHILS % (AUTO) 86.1 % (42.0-75.0); PLATELET COUNT 131 X10^3/uL (150.0-450.0); RED BLOOD COUNT 3.37 X10^6/uL (3.5-5.4); RED CELL DISTRIBUTION WIDTH 16.7 % (11.6-16.5); WHITE BLOOD COUNT 4.8 X10^3/uL (3.6-10.0)
[2024-02-21 06:14] LABS: ALANINE AMINOTRANSFERASE 81 Units/L (12-78); ALBUMIN 2.8 g/dL (3.4-5.0); ALKALINE PHOSPHATASE 59 Units/L (46-116); ASPARTATE AMINO TRANSFERASE 23 Units/L (15-37); BLOOD UREA NITROGEN 24 mg/dL (7-18); CALCIUM 7.8 mg/dL (8.5-10.1); CARBON DIOXIDE 27.8 mmol/L (21-32); CHLORIDE 94 mmol/L (98-107); COR CA(FOR HYPOALB) 8.8 mg/dL (8.5-10.1); COR NA(FOR HYPERGLY) 131 mmol/L (136-145); CREATININE 0.72 mg/dL (0.55-1.02); GLUCOSE 134 mg/dL (65-99); MAGNESIUM 2.2 mg/dL (2.0-2.9); POTASSIUM 4.3 mmol/L (3.5-5.1); SODIUM 130 mmol/L (136-145); TOTAL PROTEIN 5.5 g/dL (6.4-8.2); eGFR NON BLACK RACES > 60 (>60)
[2024-02-21 06:18] LABS: CHOL/HDL RATIO 2.8 (0.0-5.0)
[2024-02-21 08:03] VITALS: BP 158/72; RESP 28
[2024-02-21] MEDS ORDERED: OMNICEF CAP 300 MG PO SCH (21:00)
--- NOTE | 2024-02-25 09:14 | W.DIS.FURT ---
Summary of Discharge Discharge Summary of Date Date of Exam: 02/21/24 Admission Date Date of Admission: 02/14/24 Admission Diagnosis Hospital Course: Patient is a 88 year old female admitted for pneumonia due to COVID-19, Hyponatremia, CHF, and dehydration. Her hospital/treatment course included IVF, antibiotics, IV solumedrol. Electrolytes repleted per protocol. PT/OT. Urine culture positive for Klebsiella pne. Pt responded well to treatments and symptoms significantly improved. Pt discharged in stable condition. Rx cefdinir and diflucan. Instructed to hold coumadin due to INR 3.9. She will follow up with pcp tomorrow to recheck. Vital Signs: Vital Signs (72 hours) 02/18/24 11:06 02/18/24 11:16 02/18/24 11:16 Temperature Pulse Rate 60 60 Respiratory Rate 20 15 Blood Pressure 161/88 O2 Sat by Pulse Oximetry 97 Oxygen Delivery Method Oxygen Flow Rate FIO2% 02/18/24 12:00 02/18/24 12:00 02/18/24 13:00 Temperature 97.7 F Pulse Rate 60 60 Respiratory Rate 30 H 26 H Blood Pressure 152/88 O2 Sat by Pulse Oximetry 98 99 Oxygen Delivery Method Oxygen Flow Rate FIO2% 02/18/24 14:00 02/18/24 14:00 02/18/24 15:00 Temperature Pulse Rate 60 60 Respiratory Rate 14 21 Blood Pressure 141/81 O2 Sat by Pulse Oximetry 99 98 Oxygen Delivery Method Oxygen Flow Rate FIO2% 02/18/24 16:00 02/18/24 16:01 02/18/24 16:01 Temperature 98.0 F Pulse Rate 60 60 Respiratory Rate 23 24 Blood Pressure 162/80 O2 Sat by Pulse Oximetry 100 100 Oxygen Delivery Method Oxygen Flow Rate FIO2% 02/18/24 20:07 02/18/24 20:07 02/18/24 23:26 Temperature Pulse Rate 71 Respiratory Rate 17 Blood Pressure O2 Sat by Pulse Oximetry 97 Oxygen Delivery Method Room Air Oxygen Flow Rate FIO2% 02/18/24 20:00 02/18/24 19:00 02/19/24 00:00 Temperature 98.1 F 97.9 F Pulse Rate 60 60 Respiratory Rate 17 16 Blood Pressure 171/73 168/79 O2 Sat by Pulse Oximetry 100 97 Oxygen Delivery Method Room Air Oxygen Flow Rate FIO2% 02/19/24 00:26 02/19/24 04:00 02/19/24 08:00 Temperature 98.1 F 98.2 F Pulse Rate 60 60 Respiratory Rate 17 24 21 Blood Pressure 106/60 157/78 O2 Sat by Pulse Oximetry 95 99 Oxygen Delivery Method Oxygen Flow Rate FIO2% 02/19/24 07:00 02/19/24 09:31 02/19/24 13:24 Temperature Pulse Rate 60 60 Respiratory Rate Blood Pressure O2 Sat by Pulse Oximetry 98 99 Oxygen Delivery Method Room Air Oxygen Flow Rate FIO2% 02/19/24 12:00 02/19/24 16:00 02/19/24 20:10 Temperature 98.4 F 97.8 F Pulse Rate 60 60 Respiratory Rate 24 18 Blood Pressure 151/73 153/72 O2 Sat by Pulse Oximetry 99 98 Oxygen Delivery Method Room Air Oxygen Flow Rate FIO2% 02/19/24 20:10 02/19/24 19:00 02/19/24 20:00 Temperature 98.2 F Pulse Rate 70 60 Respiratory Rate 21 Blood Pressure 165/73 O2 Sat by Pulse Oximetry 95 100 Oxygen Delivery Method Room Air Room Air Oxygen Flow Rate FIO2% 02/20/24 00:00 02/20/24 04:00 02/20/24 08:08 Temperature 97.9 F 98.4 F Pulse Rate 60 60 Respiratory Rate 19 15 Blood Pressure 149/67 167/74 O2 Sat by Pulse Oximetry 98 99 Oxygen Delivery Method Room Air Room Air Room Air Oxygen Flow Rate FIO2% 02/20/24 08:08 02/20/24 07:00 02/20/24 08:00 Temperature 97.9 F Pulse Rate 60 60 Respiratory Rate 19 Blood Pressure O2 Sat by Pulse Oximetry 98 100 Oxygen Delivery Method Room Air Oxygen Flow Rate FIO2% 02/20/24 08:00 02/20/24 12:00 02/20/24 16:00 Temperature 97.9 F 97.9 F Pulse Rate 60 60 Respiratory Rate 22 18 Blood Pressure 175/82 136/69 O2 Sat by Pulse Oximetry 100 99 Oxygen Delivery Method Room Air Oxygen Flow Rate FIO2% 02/20/24 16:01 02/20/24 19:00 02/20/24 20:00 Temperature 97.9 F Pulse Rate 60 Respiratory Rate 25 H Blood Pressure 165/74 171/79 O2 Sat by Pulse Oximetry 99 Oxygen Delivery Method Room Air Room Air Oxygen Flow Rate FIO2% 02/21/24 00:25 02/21/24 00:00 02/20/24 21:15 Temperature 98.2 F Pulse Rate 60 60 Respiratory Rate 37 H Blood Pressure 164/81 O2 Sat by Pulse Oximetry 97 99 Oxygen Delivery Method Nasal Cannula Room Air Oxygen Flow Rate 2 FIO2% 28 02/21/24 04:00 02/21/24 07:00 02/21/24 08:00 Temperature 98 F Pulse Rate 60 60 60 Respiratory Rate 16 32 H 28 H Blood Pressure 163/86 O2 Sat by Pulse Oximetry 100 100 100 Oxygen Delivery Method Room Air Oxygen Flow Rate FIO2% 02/21/24 08:00 02/21/24 07:00 02/21/24 08:59 Temperature Pulse Rate Respiratory Rate Blood Pressure 158/72 O2 Sat by Pulse Oximetry Oxygen Delivery Method Room Air Room Air Oxygen Flow Rate FIO2% 02/21/24 08:59 Temperature Pulse Rate 60 Respiratory Rate Blood Pressure O2 Sat by Pulse Oximetry 100 Oxygen Delivery Method Oxygen Flow Rate FIO2% Labs: Laboratory Last Values WBC 4.8 X10^3/uL (3.6-10.0) 02/21/24 05:46 RBC 3.37 X10^6/uL (3.5-5.4) L 02/21/24 05:46 Hgb 10.7 g/dL (12.0-16.0) L 02/21/24 05:46 Hct 32.6 % (36.0-47.0) L 02/21/24 05:46 MCV 96.5 fL (80.0-100.0) 02/21/24 05:46 MCH 31.9 pg (27.0-34.0) 02/21/24 05:46 MCHC 33.0 g/dL (33.0-35.0) 02/21/24 05:46 RDW 16.7 % (11.6-16.5) H 02/21/24 05:46 Plt Count 131 X10^3/uL (150.0-450.0) L 02/21/24 05:46 Plt Count Comment Decreased (ADEQUATE) A 02/19/24 04:14 MPV 8.2 fL (7.4-11.0) 02/21/24 05:46 Neut % (Auto) 86.1 % (42.0-75.0) H 02/21/24 05:46 Lymph % (Auto) 3.8 % (21.0-51.0) L 02/21/24 05:46 [place] % (Auto) 9.9 % (0.0-13.0) 02/21/24 05:46 Eos % (Auto) 0.0 % (0.9-2.9) L 02/21/24 05:46 Baso % (Auto) 0.2 % (0.2-1.0) 02/21/24 05:46 Neut # (Auto) 4.2 x10^3/uL (2.2-4.8) 02/21/24 05:46 Lymph # (Auto) 0.2 X10^3/uL (1.3-2.9) L 02/21/24 05:46 Hem[place]ill # (Auto) 0.5 x10^3/uL (0.3-0.8) 02/21/24 05:46 Eos # (Auto) 0.0 x10^3/uL (0.0-0.2) 02/21/24 05:46 Baso # (Auto) 0.0 X10^3/uL (0.0-0.1) 02/21/24 05:46 Absolute Nucleated RBC 0.3 /100WBC 02/21/24 05:46 Total Counted 100 02/19/24 04:14 Neutrophils % (Manual) 93 % (39-76) H 02/19/24 04:14 Lymphocytes % (Manual) 4 % (13-43) L 02/19/24 04:14 Monocytes % (Manual) 3 % (4-9) L 02/19/24 04:14 Eosinophils % (Manual) 0 % (0-6) 02/19/24 04:14 Basophils % (Manual) 0 % (0-1) 02/19/24 04:14 Plt Morphology Comment Normal (NORMAL) 02/19/24 04:14 RBC Morphology Abnormal (NORMAL) A 02/19/24 04:14 Anisocytosis 1+ A 02/19/24 04:14 PT 36.8 SECONDS (11.8-14.3) 02/21/24 05:46 INR Target Range - 02/21/24 05:46 INR 3.90 (0.8-1.3) H 02/21/24 05:46 APTT 33.9 SECONDS (22.9-36.5) 02/21/24 00:25 PTT Comment - 02/21/24 00:25 Sodium 130 mmol/L (136-145) L 02/21/24 05:46 Corrected Sodium 131 mmol/L (136-145) L 02/21/24 05:46 Potassium 4.3 mmol/L (3.5-5.1) 02/21/24 05:46 Chloride 94 mmol/L (98-107) L 02/21/24 05:46 Carbon Dioxide 27.8 mmol/L (21-32) 02/21/24 05:46 BUN 24 mg/dL (7-18) H 02/21/24 05:46 Creatinine 0.72 mg/dL (0.55-1.02) 02/21/24 05:46 Est GFR (MDRD) Af Amer > 60 (>60) 02/21/24 05:46 Est GFR (MDRD) Non-Af > 60 (>60) 02/21/24 05:46 Glucose 134 mg/dL (65-99) H 02/21/24 05:46 Calcium 7.8 mg/dL (8.5-10.1) L 02/21/24 05:46 Corrected Calcium 8.8 mg/dL (8.5-10.1) 02/21/24 05:46 Magnesium 2.2 mg/dL (2.0-2.9) 02/21/24 05:46 Total Bilirubin 0.40 mg/dL (0.2-1.0) 02/21/24 05:46 AST 23 Units/L (15-37) 02/21/24 05:46 ALT 81 Units/L (12-78) H 02/21/24 05:46 Alkaline Phosphatase 59 Units/L (46-116) 02/21/24 05:46 Creatine Kinase 56 Units/L (26-192) 02/21/24 05:46 Troponin I High Sens 21.7 ng/L (4.0-60.0) 02/21/24 05:46 B-Natriuretic Peptide 790 pg/mL (0-79) H 02/19/24 04:14 Total Protein 5.5 g/dL (6.4-8.2) L 02/21/24 05:46 Albumin 2.8 g/dL (3.4-5.0) L 02/21/24 05:46 Globulin 2.7 g/dL (2.5-4.5) 02/21/24 05:46 Albumin/Globulin Ratio 1.0 Ratio (1.1-2.1) L 02/21/24 05:46 Triglycerides 90 mg/dL (0-150) 02/21/24 05:46 Cholesterol 125 mg/dL (0-200) 02/21/24 05:46 LDL Cholesterol, Calc 62 mg/dL (0-100) 02/21/24 05:46 HDL Cholesterol 45 mg/dL (40-60) 02/21/24 05:46 Cholesterol/HDL Ratio 2.8 (0.0-5.0) 02/21/24 05:46 Specimen Type Clean catch urine 02/14/24 12:00 Urine Color Yellow (YELLOW) 02/14/24 12:00 Urine Appearance Slightly hazy (CLEAR) 02/14/24 12:00 Urine pH 6.5 (5.0 - 8.0) 02/14/24 12:00 Ur Specific [place] 1.010 (1.000-1.030) 02/14/24 12:00 Urine Protein 2+ (NEGATIVE) 02/14/24 12:00 Urine Glucose (UA) Negative (NEGATIVE) 02/14/24 12:00 Urine Ketones Negative (NEGATIVE) 02/14/24 12:00 Urine Blood Negative (NEGATIVE) 02/14/24 12:00 Urine Nitrite Negative (NEGATIVE) 02/14/24 12:00 Urine Bilirubin Negative (NEGATIVE) 02/14/24 12:00 Urine Urobilinogen 1+ (NORMAL) 02/14/24 12:00 Ur Leukocyte Esterase Negative (NEGATIVE) 02/14/24 12:00 Urine RBC 0-2 /HPF (0-3) 02/14/24 12:00 Urine WBC 3-5 /HPF (0-5) 02/14/24 12:00 Ur Squamous Epith Cells Many /HPF (NEGATIVE) 02/14/24 12:00 Urine Bacteria Trace /HPF (NEGATIVE) 02/14/24 12:00 Ur Culture Indicated? No/not indicated 02/14/24 12:00 SARS-CoV-2 (PCR) Positive (NEGATIVE) A 02/14/24 17:25 Influenza Type A (PCR) Negative (NEGATIVE) 02/14/24 17:25 Influenza Type B (PCR) Negative (NEGATIVE) 02/14/24 17:25 RSV (PCR) Negative (NEGATIVE) 02/14/24 17:25 Resp Viral Panel (PCR) See scanned report 02/14/24 20:24 Reason For Visit: HYPONATREMIA, DEHYDRATION, GENERALIZED WEAKNESS, Discharge Date Discharge Date: 02/21/24 Discharge Diagnosis All Active Problems (Updated 02/18/24 @ 09:41 by Virginia Bryant) UTI (urinary tract infection) (Acute) Generalized weakness (Acute) CHF (congestive heart failure) (Acute) Mitral regurgitation (Acute) Elevated INR (Acute) Atrial fibrillation (Acute) Elevated brain natriuretic peptide (BNP) level (Acute) Pneumonia due to COVID-19 virus (Acute) COVID-19 (Acute) Dehydration (Acute) Hyponatremia (Acute) Hypokalemia (Acute) Multiple joint pain (Acute) Skin lesion of face (Acute) Skin ulcer of abdomen, limited to breakdown of skin (Acute) Nonhealing skin ulcer (Acute) Skin ulcer (Acute) Encounter for procedure (Acute) Skin ulcer (Acute) Squamous cell carcinoma of right lower leg (Acute) Allergic drug rash (Acute) Hives (Acute) Chest pain (Acute) PVCs (premature ventricular contractions) (Acute) Pacemaker (Chronic) Hypertension (Chronic) Arthritis (Chronic) Plan of Treatment: Continue with present treatment and follow up plan. Pt is to keep follow up appointment as instructed and take medications as ordered. Discharge Medications Discharge Medications: codeine Allergy (Verified 02/01/24 18:30) doxycycline Allergy (Verified 02/01/24 18:30) Penicillins Allergy (Verified 02/01/24 18:30) CONTINUE taking the following medications potassium chloride 10 mEq tablet,extended release 10 meq PO QDAY HYPOKALEMIA 02/14/24 [History] Discharge Plan Discharge Plan Hospital Course: Patient is a 88 year old female admitted for pneumonia due to COVID-19, Hyponatremia, CHF, and dehydration. Her hospital/treatment course included IVF, antibiotics, IV solumedrol. Electrolytes repleted per protocol. PT/OT. Urine culture positive for Klebsiella pne. Pt responded well to treatments and symptoms significantly improved. Pt discharged in stable condition. Rx cefdinir and diflucan. Instructed to hold coumadin due to INR 3.9. She will follow up with pcp tomorrow to recheck. Patient Disposition: 06 HOME HEALTH SERVICE Condition: Stable Health Concerns: Post Hospitalization: new medications and changes needed to prevent readmission or further decline. Pt educated and given instructions on all concerns. Care Plan Goals: Problem: Pain/Alteration in Comfort Goal: Improve/ Resolve Pain; Achieve Pain Tolerance Instructions: Take pain medications as prescribed. Contact your primary care provider if your pain is unrelieved or worsens. Follow up with primary care provider as directed. Plan of Treatment: Continue with present treatment and follow up plan. Pt is to keep follow up appointment as instructed and take medications as ordered. Prescriptions: New cefdinir 300 mg Capsule 300 mg PO BID 7 Days Qty: 14 0RF fluconazole [Diflucan] 100 mg Tablet 100 mg PO QDAY Qty: 5 0RF Continued lisinopril 5 mg tablet 5 mg PO BID metoprolol tartrate 100 mg tablet 100 mg PO BID lansoprazole 30 mg capsule,delayed release(DR/EC) 30 mg PO QDAY warfarin 5 mg tablet 5 mg PO DAILY lovastatin 20 mg tablet 20 mg PO QPM celecoxib 200 mg capsule 200 mg PO DAILY enoxaparin 40 mg/0.4 mL syringe 40 mg subcut BID Patient Comments: INJECT 1 PEN (40 MG/0.4 ML) SUBCUTANEOUSLY TWICE A DAY, EXCEPT FOR THE EVENING BEFORE SURGERY potassium chloride 10 mEq tablet extended release 10 meq PO QDAY MDD 1 Follow ups/Referrals Follow ups/Referrals: DAVONTE DAMON [STAFF PHYSICIAN] - 1 WEEK Bob Montano [STAFF PHYSICIAN] - 02/22/24 10:50 am Instructions Instructions: Urinary Tract Infection, Female, Fatigue, Weakness, [id number] Stand Alone Forms: Excuse From Work or School, Post Hospital Follow Up Care
== END 2024-02-21 11:40 | disposition home health service (06) | DRG 177 ==
LOC: LAB 12:37 → ICU 16:45
PROVIDERS: ADMIT Internal Medicine; ATTEND Internal Medicine
DX: Z66 Do not resuscitate; N30.00 Acute cystitis without hematuria; E86.0 Dehydration; I13.0 Hypertensive heart and chronic kidney disease with heart failure and stage 1 through stage 4 chronic kidney disease, or unspecified chronic kidney disease; Z79.01 Long term (current) use of anticoagulants; B96.1 Klebsiella pneumoniae [K. pneumoniae] as the cause of diseases classified elsewhere; Z98.890 Other specified postprocedural states; J12.82 Pneumonia due to coronavirus disease 2019; Z95.0 Presence of cardiac pacemaker; R07.89 Other chest pain; R53.1 Weakness; I34.0 Nonrheumatic mitral (valve) insufficiency; E87.1 Hypo-osmolality and hyponatremia; R79.1 Abnormal coagulation profile; R26.89 Other abnormalities of gait and mobility; U07.1 COVID-19; R06.02 Shortness of breath; I48.20 Chronic atrial fibrillation, unspecified; R79.89 Other specified abnormal findings of blood chemistry; R13.11 Dysphagia, oral phase; I50.33 Acute on chronic diastolic (congestive) heart failure; N18.31 Chronic kidney disease, stage 3a